=== PATIENT | female | born 1980 | race Hispanic/Latino ===

== ENCOUNTER 2016-12-07 09:01 | Inpatient (IN) | payer BC ==
[2016-12-07] MEDS ORDERED: Sodium Chloride 0.9% 1,000 ML IV STA (09:23)
--- NOTE | 2016-12-07 09:26 | ED PDOC ---
HPI: Abdomen Time Seen by Provider: 12/07/16 09:18 Chief Complaint (Nursing): Abdominal Pain History Per: Patient Onset/Duration Of Symptoms: Days (2) Current Symptoms Are (Timing): Still Present Severity: Moderate Pain Scale Rating Of: 5 Location Of Pain/Discomfort: LLQ Quality Of Discomfort: Unable To Describe Associated Symptoms: denies: Nausea, Vomiting, Diarrhea, Urinary Symptoms Exacerbating Factors: None Alleviating Factors: None Additional Complaint(s): LLQ abd pain x 2 days. Denies NVD. No urinary sxs. No fever. H/o endometriosis and ovarian cyst. Abnormal Vaginal Bleeding: Yes Past Medical History Vital Signs: Last Vital Signs Temp 98.8 F 12/07/16 09:04 Pulse 100 H 12/07/16 09:04 Resp 19 12/07/16 09:04 BP 118/70 12/07/16 09:04 Pulse Ox 100 12/07/16 09:27 - Medical History Other PMH: Endometriosis - Surgical History Other surgeries: Appendectomy, right oophorectomy, Surgery for endometriosis - Family History Family History: States: Unknown Family Hx - Allergies Allergies/Adverse Reactions: Allergies Allergy/AdvReac Type Severity Reaction Status Date / Time No Known Allergies Allergy Verified 12/07/16 09:06 Review of Systems ROS Statement: Except As Marked, All Systems Reviewed And Found Negative Gastrointestinal: Positive for: Abdominal Pain Physical Exam - Reviewed Nursing Documentation Reviewed: Yes Vital Signs Reviewed: Yes - Physical Exam Appears: Positive for: Non-toxic, Uncomfortable Head Exam: Positive for: ATRAUMATIC, NORMAL INSPECTION, NORMOCEPHALIC Skin: Positive for: Normal Color, Warm, DRY Eye Exam: Positive for: Normal appearance Neck: Positive for: Normal, Painless ROM Cardiovascular/Chest: Positive for: Regular Rate, Rhythm Respiratory: Positive for: CNT, Normal Breath Sounds Gastrointestinal/Abdominal: Positive for: Bowel Sounds, Soft, Tenderness (LLQ), Mass (LLQ), Guarding Back: Positive for: Normal Inspection Extremity: Positive for: Normal ROM Neurologic/Psych: Positive for: Alert, Oriented - ECG O2 Sat by Pulse Oximetry: 100 Disposition - Clinical Impression Clinical Impression: Abdominal pain, LLQ abdominal mass - Patient ED Disposition Is Patient to be Admitted: Yes - Disposition Disposition Time: 09:43 Condition: FAIR - Pt Status Changed To: Hospital Disposition Of: Inpatient - Admit Certification Admit to Inpatient:: After my assessment, the patient will require hospitalization for at least two midnights. This is because of the severity of symptoms shown, intensity of services needed, and/or the medical risk in this patient being treated as an outpatient. - POA Present On Arrival: None
[2016-12-07] MEDS ORDERED: Iohexol 240 (50 ml) ONE (09:35)
[2016-12-07] MEDS ORDERED: Iohexol 240 (50 ml) PO ONE ×2 (09:35→09:40)
[2016-12-07 09:44] LABS: BASO % 0.3 % (0.0-2.0); EOS # 0.2 K/uL (0.0-0.7); EOS % 1.5 % (0.0-4.0); HEMOGLOBIN 12.5 g/dL (12.0-16.0); LYMPH # 1.1 K/uL (1.0-4.3); LYMPH % 10.9 % (20.0-40.0); MEAN CELL VOLUME 88.6 fl (81.0-99.0); MEAN CORPUSCULAR HEMOGLOBIN 30.2 pg (27.0-31.0); MEAN CORPUSCULAR HGB CONC 34.1 g/dL (33.0-37.0); MEAN PLATELET VOLUME 8.5 fl (7.2-11.7); MONO # 0.5 K/uL (0.0-0.8); MONO % 4.7 % (0.0-10.0); NEUT # 8.3 K/uL (1.8-7.0); NEUT % 82.6 % (50.0-75.0); NRBC % 0.1 % (0.0-0.0); RBC 4.16 Mil/uL (3.80-5.20); RED CELL DISTRIBUTION WIDTH 13.2 % (11.5-14.5); WHITE BLOOD COUNT 10.1 K/uL (4.8-10.8)
[2016-12-07 10:16] LABS: ALB/GLOB RATIO 1.4 (1.0-2.1); ALBUMIN 4.7 g/dL (3.5-5.0); ALT/SGPT 21 U/L (9-52); AST/SGOT 46 U/L (14-36); BLOOD UREA NITROGEN 13 mg/dl (7-17); CALCIUM 9.1 mg/dL (8.4-10.2); GFR AFRICAN-AMERICAN > 60; GFR NON-AFRICAN AMERICAN > 60
--- NOTE | 2016-12-07 11:22 | CP.PCM.HP ---
History of Present Illness - History of Present Illness History of Present Illness: General Surgery - Dr. Hsu 36 yo F w/ hx of endometriosis, presenting with worsening abdominal and pelvic pains x 1 day. Pt states that for the past year she has had worsening intermittent abdominal pains but last night around midnight the pain became severe. She describes it as a sharp pain located in the suprapubic and b/l lower abdominal region, non-radiating, worsened when she urinates. Pt also admits to intermittent constipation. She denies any N/V, F/C, SOB/Cp, Diarrhea , Dysuria, Hematuria. FDLMP was 12/03 and she is irregular. PMH: Endometriosis PSH: Open Endometriosis resections x2 with Appendectomy, last surgery was 5 years ago No medications NKDA Present on Admission - Present on Admission Any Indicators Present on Admission: No Review of Systems - Review of Systems All systems: reviewed and no additional remarkable complaints except (as per HPI ) Past Patient History - Past Social History Smoking Status: Never Smoked - GASTROINTESTINAL Other/Comment: endometriosis - PSYCHIATRIC Hx Substance Use: No - SURGICAL HISTORY Hx Appendectomy: Yes Other/Comment: ovarian sx Meds Allergies/Adverse Reactions: Allergies Allergy/AdvReac Type Severity Reaction Status Date / Time No Known Allergies Allergy Verified 12/07/16 09:06 Physical Exam - Constitutional Appears: No Acute Distress - Head Exam Head Exam: ATRAUMATIC, NORMAL INSPECTION, NORMOCEPHALIC - Eye Exam Eye Exam: Normal appearance Pupil Exam: NORMAL ACCOMODATION - ENT Exam ENT Exam: Mucous Membranes Moist - Respiratory Exam Respiratory Exam: NORMAL BREATHING PATTERN. absent: Respiratory Distress - Cardiovascular Exam Cardiovascular Exam: REGULAR RHYTHM - GI/Abdominal Exam GI & Abdominal Exam: Mass (LLQ), Soft, Tenderness (lower abdomen b/l, L>R). absent: Distended, Guarding, Hernia, Rebound, Rigid - Neurological Exam Neurological exam: Alert, Oriented x3 - Psychiatric Exam Psychiatric exam: Normal Affect, Normal Mood - Skin Skin Exam: Dry, Intact Results - Vital Signs Recent Vital Signs: Last Vital Signs Temp 98.8 F 12/07/16 09:04 Pulse 100 H 12/07/16 09:04 Resp 19 12/07/16 09:04 BP 118/70 12/07/16 09:04 Pulse Ox 100 12/07/16 09:44 - Labs Result Diagrams: 12/07/16 09:39 12/07/16 09:39 Assessment & Plan - Assessment and Plan (Free Text) Assessment: 36 yo F w/ hx of endometriosis s/p resections, here with worsening lower abdominal pain -Admitted to surgical service under Dr. Hsu -CT scan with PO and IV contrast -Pain control PRN -NPO after midnight tonight -Plan for Surgery tomorrow morning DW DR. Hsu
[2016-12-07] MEDS ORDERED: Iohexol 300 100 ML IJ ONE (12:20)
[2016-12-07] MEDS ORDERED: Sodium Chloride 0.9% 50 ML IV ONE (12:20)
--- NOTE | 2016-12-07 13:03 | CT ---
PROCEDURE: CT Abdomen and Pelvis with contrast HISTORY: Pelvic pathology, endometriosis COMPARISON: None. TECHNIQUE: CT scan of the abdomen and pelvis was performed after intravenous and missed striation of contrast. Oral contrast was administered. Coronal and sagittal reformatted images were obtained. Contrast dose: 95 cc Omnipaque 300 Radiation dose: Total exam DLP = 655.84 mGy-cm. This CT exam was performed using one or more of the following dose reduction techniques: Automated exposure control, adjustment of the mA and/or kV according to patient size, and/or use of iterative reconstruction technique. FINDINGS: LOWER THORAX: The lung bases are clear. LIVER: The liver is normal in size and there is homogeneous enhancement without focal lesion. No intrahepatic biliary ductal dilatation. GALLBLADDER AND BILE DUCTS: There are no calcified gallstones. PANCREAS: The pancreas is normal in size and there is homogeneous enhancement without focal mass. No gross lesion or ductal dilatation. SPLEEN: The spleen is normal ADRENALS: Both adrenal glands are normal in size without discrete nodule KIDNEYS AND URETERS: Both kidneys are normal in size and there is homogeneous enhancement. There is a punctate nonobstructing stone in the lower pole of the left kidney. No hydronephrosis. No solid mass. VASCULATURE: Normal in appearance. No aortic aneurysm. BOWEL: The small bowel loops are normal in caliber. There is large amount of stool in the colon. APPENDIX: Normal appendix. PERITONEUM: No free fluid. No free air. LYMPH NODES: No enlarged lymph nodes. BLADDER: Normal in appearance. REPRODUCTIVE: There is a large septated cystic mass in the left lower abdomen and pelvis measuring approximately 17.7 x 0.3 cm. There is mass effect on the fundus and posterior wall of the uterus. The uterus is anteverted and normal in size. There are multiple surgical clips in the right hemipelvis. BONES: No acute fracture. Within normal limits for the patient's age. A small area of sclerosis in the right lateral acetabulum is statistically most compatible with a bone island. OTHER FINDINGS: None. IMPRESSION: 1. Large multi-septated cystic mass in the left lower abdomen and pelvis. The differential considerations include complicated septated cyst, cystadenoma and cystadenocarcinoma. Gynecologic consultation is warranted. 2. Punctate nonobstructing stone in the lower pole of the left kidney.
[2016-12-07] MEDS ORDERED: Peg-Electrolyte Oral Soln 4L (Golytely) PO ONE ×2 (13:19→14:45)
--- NOTE | 2016-12-07 16:56 | RAD ---
PROCEDURE: CHEST RADIOGRAPH, 1 VIEW HISTORY: pre-op COMPARISON: None available. FINDINGS: LUNGS: The lungs are well inflated and clear. PLEURA: No pneumothorax or pleural fluid seen. CARDIOVASCULAR: Normal. OSSEOUS STRUCTURES: No significant abnormalities. VISUALIZED UPPER ABDOMEN: Normal. OTHER FINDINGS: None. IMPRESSION: No active pulmonary disease.
[2016-12-07] MEDS ORDERED: Sodium Chloride 0.9% 1,000 ML IV SCH (23:00)
[2016-12-08 06:07] LABS: HEMOGLOBIN 11.6 g/dL (12.0-16.0); MEAN CELL VOLUME 89.6 fl (81.0-99.0); MEAN CORPUSCULAR HEMOGLOBIN 29.6 pg (27.0-31.0); RBC 3.93 Mil/uL (3.80-5.20); RED CELL DISTRIBUTION WIDTH 13.4 % (11.5-14.5); WHITE BLOOD COUNT 9.5 K/uL (4.8-10.8)
[2016-12-08 06:18] VITALS: BMI 23.3
[2016-12-08 06:23] LABS: ALB/GLOB RATIO 1.3 (1.0-2.1); ALBUMIN 3.5 g/dL (3.5-5.0); ALT/SGPT 25 U/L (9-52); AST/SGOT 22 U/L (14-36); BLOOD UREA NITROGEN 7 mg/dl (7-17); CALCIUM 8.7 mg/dL (8.4-10.2); GFR AFRICAN-AMERICAN > 60; GFR NON-AFRICAN AMERICAN > 60
[2016-12-08] MEDS ORDERED: Propofol 10 mg/ml Inj (20 ML) ONE (07:18)
[2016-12-08] MEDS ORDERED: ePHEDrine 50 mg/ml Inj ONE ×2 (07:19→09:24)
[2016-12-08] MEDS ORDERED: Midazolam 2 MG/2 ML VIAL ONE (07:19)
[2016-12-08] MEDS ORDERED: Rocuronium 10 mg/ml (5 ml) ONE ×4 (07:19→10:48)
[2016-12-08] MEDS ORDERED: Succinylcholine 200 mg/10 ml Inj IV ONE (07:20)
[2016-12-08] MEDS ORDERED: Lactated Ringer's 1,000 ML IV ONE ×3 (07:30→10:00)
[2016-12-08] MEDS ORDERED: Sevoflurane - Inhalation Anesthetic Liq (250 ml) ONE (08:25)
[2016-12-08] MEDS ORDERED: Albumin Human 5% (12.5 gm/250 ml) ONE (09:23)
[2016-12-08] MEDS ORDERED: Sodium Chloride 0.9% 1,000 ML IV ONE (09:30)
[2016-12-08] MEDS ORDERED: Neostigmine Methylsulfate 3mg/3ml Syringe IV ONE (10:49)
[2016-12-08] MEDS ORDERED: HYDROmorphone 0.5 mg/0.5 ml ISec ONE ×3 (11:28→11:38)
[2016-12-08] MEDS: HYDROmorphone 0.5 mg/0.5 ml ISec IVP PRN ×8 (11:37→12:41)
[2016-12-08] MEDS ORDERED: Lactated Ringer's 1,000 ML IV SCH (11:38)
[2016-12-08] MEDS ORDERED: HYDROmorphone 0.5 mg/0.5 ml ISec IVP PRN (11:40)
[2016-12-08] MEDS ORDERED: Naloxone 0.4 mg/ml Inj (Adult) IVP PRN (11:41)
--- NOTE | 2016-12-08 11:47 | PCM.SURG1 ---
Surgeon's Initial Post Op Note - Surgeon's Notes Surgeon: Dr. Hsu, Dr. Nevarez Table Worker Packager: Letty Delgado Type of Anesthesia: General Endo Anesthesia Administered By: Maria G Pre-Operative Diagnosis: Pelvic Mass, Endometriosis Operative Findings: see operative report Post-Operative Diagnosis: same Operation Performed: Exploratory Laparotomy. Excision of Retroperitoneal mass. b/L Ureterolysis. Left Oophrectomy. Excision Sigmoid colon wall. Excision of Bladder mass. Cystoraphy. Excision of Peritoneal Endometriosis. Excision of Uterine Adenomyosis Specimen/Specimens Removed: Endometrial implants. Portion of sigmoid colon wall. Pelvic mass Estimated Blood Loss: EBL {In ML}: 1,000 Blood Products Given: PRBC (2 units) Drains Used: No Drains Post-Op Condition: Fair Date of Surgery/Procedure: 12/08/16 Time of Surgery/Procedure: 11:49
[2016-12-08 12:15] LABS: ABG ALLEN TEST YES; ARTERIAL BLOOD GAS HCO3 22.8 mmol/L (21-28); ARTERIAL BLOOD GAS HEMOGLOBIN 12.6 g/dL (11.7-17.4); ARTERIAL BLOOD GAS O2 CAPACITY 17.2 mL/dL (16-24); ARTERIAL BLOOD GAS O2 CONTENT 16.8 ML/dL (15-23); ARTERIAL BLOOD GAS O2 SAT 97.5 % (95-98); ARTERIAL BLOOD GAS PCO2 43 mm/Hg (35-45); ARTERIAL BLOOD GAS PH 7.34 (7.35-7.45); ARTERIAL BLOOD GAS PO2 82 mm/Hg (80-100); ARTERIAL BLOOD GAS TCO2 24.5 mmol/L (22-28)
--- NOTE | 2016-12-08 15:09 | CP.PCM.CON ---
History of Present Illness - History of Present Illness History of Present Illness: 36yo F. PMHx of endometriosis, appendectomy. p/w abdominal pain secondary to large cystic mass in abdomen seen on CT abdomen (12/07). Underwent ex-lap with excision of retroperitoneal mass, bilateral ureterolysis, sigmoid colon resection, partial urinary bladder resection with cystorrhaphy, left oopherectomy, excision of peritoneal endometriosis, excision of uterine adenomyosis. EBL - 1000ml. Admitted to ICU for post-op monitoring. Review of Systems - Review of Systems All systems: reviewed and no additional remarkable complaints except - Gastrointestinal Gastrointestinal: Abdominal Pain (post-operative pain) Past Patient History - Past Medical History & Family History Past Medical History?: Yes - Past Social History Smoking Status: Never Smoked - CARDIAC Hx Cardiac Disorders: No - PULMONARY Hx Respiratory Disorders: No - NEUROLOGICAL Hx Neurological Disorder: No - HEENT Hx HEENT Problems: No - RENAL Hx Chronic Kidney Disease: No - ENDOCRINE/METABOLIC Hx Endocrine Disorders: No - HEMATOLOGICAL/ONCOLOGICAL Hx Blood Disorders: No - INTEGUMENTARY Hx Dermatological Problems: No - MUSCULOSKELETAL/RHEUMATOLOGICAL Hx Musculoskeletal Disorders: No Hx Falls: No - GASTROINTESTINAL Other/Comment: endometriosis - GENITOURINARY/GYNECOLOGICAL Hx Genitourinary Disorders: No - PSYCHIATRIC Hx Substance Use: No - SURGICAL HISTORY Hx Appendectomy: Yes Other/Comment: ovarian sx - ANESTHESIA Hx Anesthesia: Yes Meds Allergies/Adverse Reactions: Allergies Allergy/AdvReac Type Severity Reaction Status Date / Time corn Allergy Severe ANAPHYLAXIS Verified 12/07/16 14:04 rice Allergy Severe ANAPHYLAXIS Verified 12/07/16 14:17 wheat Allergy Severe ANAPHYLAXIS Verified 12/07/16 14:15 - Medications Medications: Current Medications Enoxaparin Sodium (Lovenox) 40 mg SC DAILY CARLA PRN Reason: Protocol Hydromorphone HCl (Dilaudid 0.2 Mg/Ml Manager Media Relations) 0 mg IV PRN PRN; Protocol PRN Reason: Pain, moderate (4-7) Last Admin: 12/08/16 12:00 Dose: 0 mg Sodium Chloride (Sodium Chloride 0.9%) 1,000 mls @ 100 mls/hr IV .Q10H CARLA Last Admin: 12/08/16 13:15 Dose: 0 mls Lactated Ringer's (Lactated Ringer's) 1,000 mls @ 125 mls/hr IV .Q8H CARLA Cefoxitin Sodium (Mefoxin Iv 1 Gm Duplex) 1 gm in 50 mls @ 50 mls/hr IVPB Q6 CARLA Morphine Sulfate (Morphine) 4 mg IVP Q4 PRN PRN Reason: Pain, moderate (4-7) Last Admin: 12/08/16 00:37 Dose: 4 mg Naloxone HCl (Narcan) 0.1 mg IVP Q2M PRN PRN Reason: Opiate reversal Ondansetron HCl (Zofran Inj) 4 mg IVP Q4H PRN PRN Reason: Nausea/Vomiting Physical Exam - Head Exam Head Exam: ATRAUMATIC, NORMAL INSPECTION, NORMOCEPHALIC - Eye Exam Eye Exam: EOMI, Normal appearance, PERRL - ENT Exam ENT Exam: Mucous Membranes Dry - Respiratory Exam Respiratory Exam: Clear to Auscultation Bilateral, NORMAL BREATHING PATTERN - Cardiovascular Exam Cardiovascular Exam: Tachycardia, REGULAR RHYTHM - GI/Abdominal Exam GI & Abdominal Exam: Hypoactive Bowel Sounds, Tenderness Additional comments: surgical wound dressed - Neurological Exam Neurological exam: Alert, CN II-XII Intact, Oriented x3 - Psychiatric Exam Psychiatric exam: Anxious Results - Vital Signs Recent Vital Signs: Last Vital Signs Temp 98.7 F 12/08/16 13:39 Pulse 79 12/08/16 13:39 Resp 38 H 12/08/16 13:39 BP 113/58 L 12/08/16 13:39 Pulse Ox 99 12/08/16 13:39 - Labs Result Diagrams: 12/08/16 05:50 12/08/16 05:50 Labs: Laboratory Results - last 24 hr 12/08/16 12/08/16 12/08/16 05:50 05:50 05:50 WBC 9.5 RBC 3.93 Hgb 11.6 L Hct 35.2 MCV 89.6 MCH 29.6 MCHC 33.0 RDW 13.4 Plt Count 257 pCO2 pO2 HCO3 ABG pH ABG Total CO2 ABG O2 Saturation ABG O2 Content ABG Base Excess ABG Hemoglobin ABG Carboxyhemoglobin POC ABG HHb (Measured) ABG Methemoglobin ABG O2 Capacity Rosendo Test A-a O2 Difference Hgb O2 Saturation Liter Flow Vent Mode FiO2 Sodium 141 Potassium 3.6 Chloride 109 H Carbon Dioxide 25 Anion Gap 11 BUN 7 Creatinine 0.7 Est GFR ( Amer) > 60 Est GFR (Non-Af Amer) > 60 Random Glucose 91 Calcium 8.7 Total Bilirubin 0.6 AST 22 ALT 25 Alkaline Phosphatase 55 Total Protein 6.3 Albumin 3.5 D Globulin 2.8 Albumin/Globulin Ratio 1.3 Blood Type A POSITIVE Blood Type Confirm Antibody Screen Negative Crossmatch See Detail BBK History Checked No verified bt 12/08/16 12/08/16 07:09 11:43 WBC RBC Hgb Hct MCV MCH MCHC RDW Plt Count pCO2 43 pO2 82 HCO3 22.8 ABG pH 7.34 L ABG Total CO2 24.5 ABG O2 Saturation 97.5 ABG O2 Content 16.8 ABG Base Excess -2.6 L ABG Hemoglobin 12.6 ABG Carboxyhemoglobin 1.7 H POC ABG HHb (Measured) 2.4 ABG Methemoglobin 1.6 ABG O2 Capacity 17.2 Rosendo Test Yes A-a O2 Difference 64.0 Hgb O2 Saturation 94.3 L Liter Flow 2 Vent Mode Nc FiO2 28.0 Sodium Potassium Chloride Carbon Dioxide Anion Gap BUN Creatinine Est GFR ( Amer) Est GFR (Non-Af Amer) Random Glucose Calcium Total Bilirubin AST ALT Alkaline Phosphatase Total Protein Albumin Globulin Albumin/Globulin Ratio Blood Type Blood Type Confirm A POSITIVE Antibody Screen Crossmatch BBK History Checked Assessment & Plan (1) Abdominal mass Assessment and Plan: 36yo F. PMHx of endometriosis, appendectomy. p/w abdominal pain secondary to large cystic mass in abdomen seen on CT abdomen (12/07). Underwent ex-lap with excision of retroperitoneal mass, bilateral ureterolysis, sigmoid colon resection, partial urinary bladder resection with cystorrhaphy, left oopherectomy, excision of peritoneal endometriosis, excision of uterine adenomyosis. Neuro: Alert and oriented 3, Dilaudid CERTIFIED MEDICAL TECHNICIAN for pain Pulm: No acute issues, breathing spontaneously on 2 L nasal cannula. CV: Hemodynamically stable Hem: Post-op blood loss anemia, will monitor for need of transfusion. Renal: No acute issues, urine output within normal limits, will monitor. LR@125 Endo: No acute issues GI: Nothing by mouth ID: Empiric coverage with cefoxitin DVT proph - Lovenox GI proph - not currently indicated toney for strict I/O's during acute illness Code status - full code Critical Care Time spent 35 minutes Multi-disciplinary rounds were performed with house staff, nursing, speech therapy, respiratory therapy, pharmacy and nutrition with integrated input from the primary team/attending and other consulting services. The documented time is cumulative and includes review of patient data/exams/labs/chart review and examination of the patient on rounds and throughout the day; time is exclusive of any procedures or teaching time. Status: Acute
[2016-12-08 15:13] LABS: ALB/GLOB RATIO 1.5 (1.0-2.1); ALBUMIN 3.1 g/dL (3.5-5.0); ALT/SGPT 25 U/L (9-52); AST/SGOT 21 U/L (14-36); BLOOD UREA NITROGEN 8 mg/dl (7-17); CALCIUM 8.1 mg/dL (8.4-10.2); GFR AFRICAN-AMERICAN > 60; GFR NON-AFRICAN AMERICAN > 60
[2016-12-08] MEDS ORDERED: Benzocaine/Menthol (Cepacol) Lozenge PO PRN (15:53)
[2016-12-08] MEDS ORDERED: Phenol 1.4% Throat Spray MT PRN (15:53)
[2016-12-08] MEDS ORDERED: cefOXitin IV 1 gm in Dextrose 1 GM/50 ML BAG IVPB SCH (16:00)
[2016-12-08 16:20] LABS: BASO # 0.1 K/uL (0.0-0.2); BASO % 0.3 % (0.0-2.0); HEMOGLOBIN 12.3 g/dL (12.0-16.0); LYMPH # 0.4 K/uL (1.0-4.3); LYMPH % 1.8 % (20.0-40.0); MEAN CELL VOLUME 89.1 fl (81.0-99.0); MEAN CORPUSCULAR HEMOGLOBIN 29.3 pg (27.0-31.0); MEAN CORPUSCULAR HGB CONC 32.9 g/dL (33.0-37.0); MEAN PLATELET VOLUME 8.7 fl (7.2-11.7); MONO # 0.9 K/uL (0.0-0.8); MONO % 3.8 % (0.0-10.0); NEUT # 23.1 K/uL (1.8-7.0); NEUT % 94.1 % (50.0-75.0); PLATELET COUNT 244 K/uL (130-400); RED CELL DISTRIBUTION WIDTH 13.7 % (11.5-14.5)
[2016-12-08 16:37] LABS: WHITE BLOOD COUNT 24.5 K/uL (4.8-10.8)
--- NOTE | 2016-12-08 17:22 | CARD ---
APPROVED REPORT EKG Measurement Heart [id number] <Conclusion> Normal sinus rhythm Low voltage QRS Borderline ECG
[2016-12-08 17:55] LABS: LYMPHOCYTE 3 % (20-50); MONOCYTE 5 % (0-10); NEUTROPHIL 92 % (42-75); TOTAL CELLS COUNTED 100
[2016-12-08 17:56] LABS: PLATELET ESTIMATE NORMAL (NORMAL)
[2016-12-08] MEDS ORDERED: Artificial Tears Opht Soln OU PRN (19:34)
[2016-12-08] MEDS: cefOXitin Sodium 1 GM in Dextrose 5% In Water 50 ML IV SCH (21:58)
[2016-12-09] MEDS: cefOXitin Sodium 1 GM in Dextrose 5% In Water 50 ML IV SCH ×3 (05:13→21:55)
[2016-12-09 07:32] LABS: BASO % 0.3 % (0.0-2.0); EOS % 0.3 % (0.0-4.0); HEMOGLOBIN 10.9 g/dL (12.0-16.0); LYMPH # 1.3 K/uL (1.0-4.3); MEAN CELL VOLUME 89.1 fl (81.0-99.0); MEAN CORPUSCULAR HGB CONC 33.7 g/dL (33.0-37.0); MEAN PLATELET VOLUME 8.7 fl (7.2-11.7); MONO # 0.8 K/uL (0.0-0.8); MONO % 6.7 % (0.0-10.0); NEUT # 10.5 K/uL (1.8-7.0); NEUT % 82.7 % (50.0-75.0); RBC 3.63 Mil/uL (3.80-5.20); RED CELL DISTRIBUTION WIDTH 13.7 % (11.5-14.5); WHITE BLOOD COUNT 12.7 K/uL (4.8-10.8)
[2016-12-09 07:38] LABS: ALB/GLOB RATIO 1.3 (1.0-2.1); ALT/SGPT 31 U/L (9-52); AST/SGOT 30 U/L (14-36); BLOOD UREA NITROGEN 11 mg/dl (7-17); GFR AFRICAN-AMERICAN > 60; GFR NON-AFRICAN AMERICAN > 60
[2016-12-09] MEDS ORDERED: Lactated Ringer's 1,000 ML IV SCH (08:15)
--- NOTE | 2016-12-09 08:42 | CP.PCM.PN ---
Subjective - Date & Time of Evaluation Date of Evaluation: 12/09/16 Time of Evaluation: 08:40 - Subjective Subjective: General Surgery - Dr. Hsu Pt S&E. Overnight pt. BP was in the 80s systolic and hospitalist was paged, at which point they decided to stop the PHP MAGENTO DEVELOPER. This morning pt in severe pain not controlled with Morphine prn. All vitals stable and WNL, BP 110/70 at time of exam. Pt complains of lower abdominal pain near the incision which is appropriate. She also has throat discomfort from the NGT. She denies any F/C, SOB/Cp, N/V. Weiss catheter with 500cc clear yellow urine overnight. NGT with 100cc gastric fluid. Objective - Vital Signs/Intake and Output Vital Signs (last 24 hours): Temp Pulse Resp BP Pulse Ox 99.6 F 68 17 94/55 L 100 12/09/16 04:00 12/09/16 06:00 12/09/16 06:00 12/09/16 06:00 12/09/16 06:00 Intake and Output: 12/09/16 12/09/16 06:59 18:59 Intake Total 1475 Output Total 250 Balance 1225 - Medications Medications: Current Medications Artificial Tears (Artificial Tears) 2 drop OU Q4 PRN PRN Reason: Dry eyes Last Admin: 12/08/16 19:49 Dose: 2 drop Benzocaine/Menthol (Cepacol Sore Throat) 1 chadwick PO Q2 PRN PRN Reason: Sore Throat Last Admin: 12/08/16 19:37 Dose: 1 chadwick Enoxaparin Sodium (Lovenox) 40 mg SC DAILY CARLA PRN Reason: Protocol Hydromorphone HCl (Dilaudid 0.2 Mg/Ml Core Dipper) 0 mg IV PRN PRN; Protocol PRN Reason: Pain, moderate (4-7) Last Admin: 12/08/16 22:37 Dose: 6 mg Hydromorphone HCl (Dilaudid 0.2 Mg/Ml Core Dipper) 6 mg IV PRN PRN; Protocol PRN Reason: Pain, moderate (4-7) Sodium Bicarbonate 75 meq/ (Sodium Chloride) 1,075 mls @ 125 mls/hr IV .Q8H36M [facility] Stop: 12/09/16 18:46 Last Admin: 12/09/16 05:13 Dose: 125 mls/hr Cefoxitin Sodium 1 gm/ (Dextrose) 50 mls @ 50 mls/hr IV Q6 [facility] Last Admin: 12/09/16 05:13 Dose: 50 mls/hr Lactated Ringer's (Lactated Ringer's) 1,000 mls @ 999 mls/hr IV .Q1H1M [facility] Ketorolac Tromethamine (Toradol) 30 mg IVP Q6 [facility] Stop: 12/11/16 16:01 Last Admin: 12/09/16 03:42 Dose: 30 mg Morphine Sulfate (Morphine) 4 mg IVP Q4 PRN PRN Reason: Pain, severe (8-10) Last Admin: 12/09/16 07:48 Dose: 4 mg Naloxone HCl (Narcan) 0.1 mg IVP Q2M PRN PRN Reason: Opiate reversal Ondansetron HCl (Zofran Inj) 4 mg IVP Q4H PRN PRN Reason: Nausea/Vomiting Phenol/Menthol (Phenaseptic 1.4% Throat Meyers Chuck) 1 spry MT Q2 PRN PRN Reason: Sore Throat Last Admin: 12/08/16 17:10 Dose: 1 spr - Labs Labs: 12/09/16 07:45 12/09/16 04:00 - Constitutional Appears: In Acute Distress - Head Exam Head Exam: ATRAUMATIC, NORMAL INSPECTION, NORMOCEPHALIC - Eye Exam Eye Exam: Normal appearance - ENT Exam ENT Exam: Mucous Membranes Moist - Respiratory Exam Respiratory Exam: NORMAL BREATHING PATTERN. absent: Respiratory Distress - Cardiovascular Exam Cardiovascular Exam: REGULAR RHYTHM - GI/Abdominal Exam GI & Abdominal Exam: Soft, Tenderness. absent: Distended, Firm, Guarding, Rebound Additional comments: midline incision C/D/I - Neurological Exam Neurological Exam: Alert, Oriented x3 - Psychiatric Exam Psychiatric exam: Normal Affect, Normal Mood - Skin Skin Exam: Dry, Intact Assessment and Plan - Assessment and Plan (Free Text) Assessment: 40 yo F w/ endometriosis s/p Laparotomy with resection of pelvic mass, POD #1 -D/C NGT -IVF Bolus x1 then continue LR @125/hr -NPO with sips of water and ice chips -Weiss to remain in place for several days, Monitor I/O -Pain control with PHP MAGENTO DEVELOPER and Toradol atc, Morphine for breakthrough pain -OOB to chair and encourage incentive spirometer -DVT px -Surgical team is to be paged for any and all issues regarding the patient. 24Hr weekend pager: [phone] Hsu and Dr. Geri Meneses PGY2
--- NOTE | 2016-12-09 08:55 | CP.CCUPN ---
CCU Subjective - Physician Review Events Since Last Encounter (Free Text): 12/10/16 The Patient was seen and examined at the bedside, Medical records reviewed, all clinical/lab/hemodynamic/radiographic data were reviewed and management issues were discussed and formulated, Events reviewed 36 Y/O F with Pelvic Mass, Endometriosis, POD #1 S/P Exploratory Laparotomy, Excision of Retroperitoneal mass, b/L Ureterolysis, Left Oophrectomy, Excision Sigmoid colon wall. Also Excision of Bladder mass, Cystoraphy, Excision of Peritoneal Endometriosis and Excision of Uterine Adenomyosis Procedure done under General Anesthesia and was uneventful, Patient was successfully extubated, admitted to ICU hemodynamically stable, Overnight boarderline hypotensive, BP better today Abd pain better controlled today on STREETCAR REPAIRER HELPER and Toradol, denies any chest pain or SOB No BM or flatus NG Tube removed Patient OOB to the chair, using I Spirometry about 700ml CCU Objective - Vital Signs / Intake & Output Vital Signs (Last 4 hours): Vital Signs Pulse Resp BP Pulse Ox 12/09/16 06:00 68 17 94/55 L 100 Intake and Output (Last 8hrs): Intake & Output 12/08/16 12/09/16 12/09/16 22:59 06:59 14:59 Intake Total 850 975 Output Total 300 250 Balance 550 725 Intake: IV 800 875 Intake, Piggyback 50 100 Output: Urine 300 250 Urethral (Weiss) 300 250 - Physical Exam Physical Exam Limitations: Positive for: Clinical Condition Head: Positive for: Atraumatic, Normocephalic Pupils: Positive for: PERRL. Negative for: Sluggish, Non-Reactive Extroacular Muscles: Positive for: EOMI. Negative for: Gaze Palsy, Entrapment Conjunctiva: Positive for: Normal. Negative for: Injected Ears: Positive for: Normal Mouth: Positive for: Moist Mucous Membranes Pharnyx: Positive for: Normal Nose (Internal): Positive for: Normal Inspection Neck: Positive for: Normal Range of Motion, Trachea Midline. Negative for: Meningeal Signs, MIDLINE TENDERNESS, Paraspinal Tenderness, JVD, Lymphadenopathy , Bruit, Other Respiratory/Chest: Positive for: Clear to Auscultation, Good Air Exchange. Negative for: Respiratory Distress, Accessory Muscle Use, Wheezes, Rales, Rhonchi Cardiovascular: Positive for: Regular Rate and Rhythm, Normal S1, S2, Peripheal Pulses Present. Negative for: Murmurs, Irregular Rhythm, Tachycardic, Bradycardic Abdomen: Positive for: Tenderness, Distention, Other (Midline abdominal surgical incision covered with dressing, CDI W/O drainage/erythema). Negative for: Normal Bowel Sounds, Peritoneal Signs Upper Extremity: Positive for: Normal Inspection, NORMAL PULSES, Capillary Refill < 2s. Negative for: Cyanosis, Edema Lower Extremity: Positive for: Edema, NORMAL PULSES, Capillary Refill < 2 s Neurological: Positive for: GCS=15, CN II-XII Intact, Speech Normal, Motor Func Grossly Intact, Normal Sensory Function Skin: Positive for: Warm, Dry Psychiatric: Positive for: Alert, Oriented x 3, Normal Insight, Normal Concentration - Medications Active Medications: Active Medications Generic Name Dose Route Start Last Admin Trade Name Freq PRN Reason Stop Dose Admin Artificial Tears 2 drop 12/08/16 19:34 12/08/16 19:49 Artificial Tears OU 2 drop Q4 PRN Administration Dry eyes Benzocaine/Menthol 1 chadwick 12/08/16 15:53 12/08/16 19:37 Cepacol Sore Throat PO 1 chadwick Q2 PRN Administration Sore Throat Enoxaparin Sodium 40 mg 12/09/16 09:00 Lovenox SC DAILY [facility] Protocol Hydromorphone HCl 0 mg 12/08/16 11:39 12/08/16 22:37 Dilaudid 0.2 Mg/Ml Milling Machine Operator IV 6 mg PRN PRN Administration Pain, moderate (4-7) Protocol Hydromorphone HCl 6 mg 12/09/16 08:08 Dilaudid 0.2 Mg/Ml Milling Machine Operator IV PRN PRN Pain, moderate (4-7) Protocol Sodium Bicarbonate 75 meq/ 1,075 mls @ 125 mls/hr 12/08/16 19:00 12/09/16 05: 13 Sodium Chloride IV 12/09/16 18:46 125 mls/hr .Q8H36M CARLA Administration Cefoxitin Sodium 1 gm/ 50 mls @ 50 mls/hr 12/08/16 22:00 12/09/16 05:13 Dextrose IV 50 mls/hr Q6 CARLA Administration Lactated Ringer's 1,000 mls @ 999 mls/hr 12/09/16 08:15 Lactated Ringer's IV .Q1H1M CARLA Ketorolac Tromethamine 30 mg 12/08/16 16:00 12/09/16 03:42 Toradol IVP 12/11/16 16:01 30 mg Q6 CARLA Administration Morphine Sulfate 4 mg 12/08/16 15:52 12/09/16 07:48 Morphine IVP 4 mg Q4 PRN Administration Pain, severe (8-10) Naloxone HCl 0.1 mg 12/08/16 11:41 Narcan IVP Q2M PRN Opiate reversal Ondansetron HCl 4 mg 12/08/16 11:41 Zofran Inj IVP Q4H PRN Nausea/Vomiting Phenol/Menthol 1 spry 12/08/16 15:53 12/08/16 17:10 Phenaseptic 1.4% Throat [place] 1 spr Q2 PRN Administration Sore Throat - Patient Studies Lab Studies: Lab Studies 12/09/16 12/09/16 12/08/16 Range/Units 07:45 04:00 14:30 WBC 12.7 H (4.8-10.8) K/uL RBC 3.63 L (3.80-5.20) Mil/uL Hgb 10.9 L (12.0-16.0) g/dL Hct 32.3 L (34.0-47.0) % MCV 89.1 (81.0-99.0) fl MCH 30.0 (27.0-31.0) pg MCHC 33.7 (33.0-37.0) g/dL RDW 13.7 (11.5-14.5) % Plt Count 206 (130-400) K/uL MPV 8.7 (7.2-11.7) fl Neut % (Auto) 82.7 H (50.0-75.0) % Lymph % (Auto) 10.0 L (20.0-40.0) % [place] % (Auto) 6.7 (0.0-10.0) % Eos % (Auto) 0.3 (0.0-4.0) % Baso % (Auto) 0.3 (0.0-2.0) % Neut # 10.5 H (1.8-7.0) K/uL Lymph # 1.3 (1.0-4.3) K/uL [place] # 0.8 (0.0-0.8) K/uL Eos # 0.0 (0.0-0.7) K/uL Baso # 0.0 (0.0-0.2) K/uL Neutrophils % (Manual) (42-75) % Lymphocytes % (Manual) (20-50) % Monocytes % (Manual) (0-10) % Platelet Estimate (NORMAL) pCO2 (35-45) mm/Hg pO2 (80-100) mm/Hg HCO3 (21-28) mmol/L ABG pH (7.35-7.45) ABG Total CO2 (22-28) mmol/L ABG O2 Saturation (95-98) % ABG O2 Content (15-23) ML/dL ABG Base Excess (-2.0-3.0) mmol/L ABG Hemoglobin (11.7-17.4) g/dL ABG Carboxyhemoglobin (0.5-1.5) % POC ABG HHb (Measured) (0.0-5.0) % ABG Methemoglobin (0.0-3.0) % ABG O2 Capacity (16-24) mL/dL Rosendo Test A-a O2 Difference mm/Hg Hgb O2 Saturation (95.0-98.0) % Liter Flow Vent Mode FiO2 % Sodium 139 139 (132-148) mmol/l Potassium 3.6 3.7 (3.6-5.0) MMOL/L Chloride 106 108 H (98-107) mmol/L Carbon Dioxide 25 23 (22-30) mmol/L Anion Gap 11 12 (10-20) BUN 11 8 (7-17) mg/dl Creatinine 0.7 0.7 (0.7-1.2) mg/dL Est GFR ( Amer) > 60 > 60 Est GFR (Non-Af Amer) > 60 > 60 Random Glucose 88 133 H (65-105) mg/dL Calcium 8.0 L 8.1 L (8.4-10.2) mg/dL Total Bilirubin 0.6 1.0 (0.2-1.3) mg/dl AST 30 21 (14-36) U/L ALT 31 25 (9-52) U/L Alkaline Phosphatase 44 46 (38-126) U/L Total Protein 5.3 L 5.2 L (6.3-8.2) G/DL Albumin 3.0 L 3.1 L (3.5-5.0) g/dL Globulin 2.3 2.1 L (2.2-3.9) gm/dL Albumin/Globulin Ratio 1.3 1.5 (1.0-2.1) Blood Type Blood Type Confirm Antibody Screen Crossmatch BBK History Checked 12/08/16 12/08/16 12/08/16 Range/Units 14:30 11:43 07:09 WBC 24.5 H D (4.8-10.8) K/uL RBC 4.20 (3.80-5.20) Mil/uL Hgb 12.3 (12.0-16.0) g/dL Hct 37.4 (34.0-47.0) % MCV 89.1 (81.0-99.0) fl MCH 29.3 (27.0-31.0) pg MCHC 32.9 L (33.0-37.0) g/dL RDW 13.7 (11.5-14.5) % Plt Count 244 (130-400) K/uL MPV 8.7 (7.2-11.7) fl Neut % (Auto) 94.1 H (50.0-75.0) % Lymph % (Auto) 1.8 L (20.0-40.0) % [place] % (Auto) 3.8 (0.0-10.0) % Eos % (Auto) 0.0 (0.0-4.0) % Baso % (Auto) 0.3 (0.0-2.0) % Neut # 23.1 H (1.8-7.0) K/uL Lymph # 0.4 L (1.0-4.3) K/uL [place] # 0.9 H (0.0-0.8) K/uL Eos # 0.0 (0.0-0.7) K/uL Baso # 0.1 (0.0-0.2) K/uL Neutrophils % (Manual) 92 H (42-75) % Lymphocytes % (Manual) 3 L (20-50) % Monocytes % (Manual) 5 (0-10) % Platelet Estimate Normal (NORMAL) pCO2 43 (35-45) mm/Hg pO2 82 (80-100) mm/Hg HCO3 22.8 (21-28) mmol/L ABG pH 7.34 L (7.35-7.45) ABG Total CO2 24.5 (22-28) mmol/L ABG O2 Saturation 97.5 (95-98) % ABG O2 Content 16.8 (15-23) ML/dL ABG Base Excess -2.6 L (-2.0-3.0) mmol/L ABG Hemoglobin 12.6 (11.7-17.4) g/dL ABG Carboxyhemoglobin 1.7 H (0.5-1.5) % POC ABG HHb (Measured) 2.4 (0.0-5.0) % ABG Methemoglobin 1.6 (0.0-3.0) % ABG O2 Capacity 17.2 (16-24) mL/dL Rosendo Test Yes A-a O2 Difference 64.0 mm/Hg Hgb O2 Saturation 94.3 L (95.0-98.0) % Liter Flow 2 Vent Mode Nc FiO2 28.0 % Sodium (132-148) mmol/l Potassium (3.6-5.0) MMOL/L Chloride (98-107) mmol/L Carbon Dioxide (22-30) mmol/L Anion Gap (10-20) BUN (7-17) mg/dl Creatinine (0.7-1.2) mg/dL Est GFR ( Amer) Est GFR (Non-Af Amer) Random Glucose (65-105) mg/dL Calcium (8.4-10.2) mg/dL Total Bilirubin (0.2-1.3) mg/dl AST (14-36) U/L ALT (9-52) U/L Alkaline Phosphatase (38-126) U/L Total Protein (6.3-8.2) G/DL Albumin (3.5-5.0) g/dL Globulin (2.2-3.9) gm/dL Albumin/Globulin Ratio (1.0-2.1) Blood Type Blood Type Confirm A POSITIVE Antibody Screen Crossmatch BBK History Checked 12/08/16 Range/Units 05:50 WBC (4.8-10.8) K/uL RBC (3.80-5.20) Mil/uL Hgb (12.0-16.0) g/dL Hct (34.0-47.0) % MCV (81.0-99.0) fl MCH (27.0-31.0) pg MCHC (33.0-37.0) g/dL RDW (11.5-14.5) % Plt Count (130-400) K/uL MPV (7.2-11.7) fl Neut % (Auto) (50.0-75.0) % Lymph % (Auto) (20.0-40.0) % [place] % (Auto) (0.0-10.0) % Eos % (Auto) (0.0-4.0) % Baso % (Auto) (0.0-2.0) % Neut # (1.8-7.0) K/uL Lymph # (1.0-4.3) K/uL [place] # (0.0-0.8) K/uL Eos # (0.0-0.7) K/uL Baso # (0.0-0.2) K/uL Neutrophils % (Manual) (42-75) % Lymphocytes % (Manual) (20-50) % Monocytes % (Manual) (0-10) % Platelet Estimate (NORMAL) pCO2 (35-45) mm/Hg pO2 (80-100) mm/Hg HCO3 (21-28) mmol/L ABG pH (7.35-7.45) ABG Total CO2 (22-28) mmol/L ABG O2 Saturation (95-98) % ABG O2 Content (15-23) ML/dL ABG Base Excess (-2.0-3.0) mmol/L ABG Hemoglobin (11.7-17.4) g/dL ABG Carboxyhemoglobin (0.5-1.5) % POC ABG HHb (Measured) (0.0-5.0) % ABG Methemoglobin (0.0-3.0) % ABG O2 Capacity (16-24) mL/dL Rosendo Test A-a O2 Difference mm/Hg Hgb O2 Saturation (95.0-98.0) % Liter Flow Vent Mode FiO2 % Sodium (132-148) mmol/l Potassium (3.6-5.0) MMOL/L Chloride (98-107) mmol/L Carbon Dioxide (22-30) mmol/L Anion Gap (10-20) BUN (7-17) mg/dl Creatinine (0.7-1.2) mg/dL Est GFR ( Amer) Est GFR (Non-Af Amer) Random Glucose (65-105) mg/dL Calcium (8.4-10.2) mg/dL Total Bilirubin (0.2-1.3) mg/dl AST (14-36) U/L ALT (9-52) U/L Alkaline Phosphatase (38-126) U/L Total Protein (6.3-8.2) G/DL Albumin (3.5-5.0) g/dL Globulin (2.2-3.9) gm/dL Albumin/Globulin Ratio (1.0-2.1) Blood Type A POSITIVE Blood Type Confirm Antibody Screen Negative Crossmatch See Detail BBK History Checked No verified bt Laboratory Results - last 24 hr 12/08/16 12/08/16 12/08/16 05:50 07:09 11:43 WBC RBC Hgb Hct MCV MCH MCHC RDW Plt Count MPV Neut % (Auto) Lymph % (Auto) [place] % (Auto) Eos % (Auto) Baso % (Auto) Neut # Lymph # [place] # Eos # Baso # Neutrophils % (Manual) Lymphocytes % (Manual) Monocytes % (Manual) Platelet Estimate pCO2 43 pO2 82 HCO3 22.8 ABG pH 7.34 L ABG Total CO2 24.5 ABG O2 Saturation 97.5 ABG O2 Content 16.8 ABG Base Excess -2.6 L ABG Hemoglobin 12.6 ABG Carboxyhemoglobin 1.7 H POC ABG HHb (Measured) 2.4 ABG Methemoglobin 1.6 ABG O2 Capacity 17.2 [place] Test Yes A-a O2 Difference 64.0 Hgb O2 Saturation 94.3 L Liter Flow 2 Vent Mode Nc FiO2 28.0 Sodium Potassium Chloride Carbon Dioxide Anion Gap BUN Creatinine Est GFR ( Amer) Est GFR (Non-Af Amer) Random Glucose Calcium Total Bilirubin AST ALT Alkaline Phosphatase Total Protein Albumin Globulin Albumin/Globulin Ratio Blood Type A POSITIVE Blood Type Confirm A POSITIVE Antibody Screen Negative Crossmatch See Detail BBK History Checked No verified bt 12/08/16 12/08/16 12/09/16 14:30 14:30 04:00 WBC 24.5 H D RBC 4.20 Hgb 12.3 Hct 37.4 MCV 89.1 MCH 29.3 MCHC 32.9 L RDW 13.7 Plt Count 244 MPV 8.7 Neut % (Auto) 94.1 H Lymph % (Auto) 1.8 L [place] % (Auto) 3.8 Eos % (Auto) 0.0 Baso % (Auto) 0.3 Neut # 23.1 H Lymph # 0.4 L [place] # 0.9 H Eos # 0.0 Baso # 0.1 Neutrophils % (Manual) 92 H Lymphocytes % (Manual) 3 L Monocytes % (Manual) 5 Platelet Estimate Normal pCO2 pO2 HCO3 ABG pH ABG Total CO2 ABG O2 Saturation ABG O2 Content ABG Base Excess ABG Hemoglobin ABG Carboxyhemoglobin POC ABG HHb (Measured) ABG Methemoglobin ABG O2 Capacity [place] Test A-a O2 Difference Hgb O2 Saturation Liter Flow Vent Mode FiO2 Sodium 139 139 Potassium 3.7 3.6 Chloride 108 H 106 Carbon Dioxide 23 25 Anion Gap 12 11 BUN 8 11 Creatinine 0.7 0.7 Est GFR ( Amer) > 60 > 60 Est GFR (Non-Af Amer) > 60 > 60 Random Glucose 133 H 88 Calcium 8.1 L 8.0 L Total Bilirubin 1.0 0.6 AST 21 30 ALT 25 31 Alkaline Phosphatase 46 44 Total Protein 5.2 L 5.3 L Albumin 3.1 L 3.0 L Globulin 2.1 L 2.3 Albumin/Globulin Ratio 1.5 1.3 Blood Type Blood Type Confirm Antibody Screen Crossmatch BBK History Checked 12/09/16 07:45 WBC 12.7 H RBC 3.63 L Hgb 10.9 L Hct 32.3 L MCV 89.1 MCH 30.0 MCHC 33.7 RDW 13.7 Plt Count 206 MPV 8.7 Neut % (Auto) 82.7 H Lymph % (Auto) 10.0 L [place] % (Auto) 6.7 Eos % (Auto) 0.3 Baso % (Auto) 0.3 Neut # 10.5 H Lymph # 1.3 [place] # 0.8 Eos # 0.0 Baso # 0.0 Neutrophils % (Manual) Lymphocytes % (Manual) Monocytes % (Manual) Platelet Estimate pCO2 pO2 HCO3 ABG pH ABG Total CO2 ABG O2 Saturation ABG O2 Content ABG Base Excess ABG Hemoglobin ABG Carboxyhemoglobin POC ABG HHb (Measured) ABG Methemoglobin ABG O2 Capacity [place]sendo Test A-a O2 Difference Hgb O2 Saturation Liter Flow Vent Mode FiO2 Sodium Potassium Chloride Carbon Dioxide Anion Gap BUN Creatinine Est GFR ( Amer) Est GFR (Non-Af Amer) Random Glucose Calcium Total Bilirubin AST ALT Alkaline Phosphatase Total Protein Albumin Globulin Albumin/Globulin Ratio Blood Type Blood Type Confirm Antibody Screen Crossmatch BBK History Checked Review of Systems - Cardiovascular Cardiovascular: absent: Chest Pain, Chest Pain at Rest, Chest Pain with Activity - Respiratory Respiratory: absent: Cough, Dyspnea, Hemoptysis, Dyspnea on Exertion, Wheezing - Gastrointestinal Gastrointestinal: Abdominal Pain (difuse, mild Abd pain) Critical Care Progress Note - Nutrition Nutrition: Nutrition Category Date Time Status NPO Diet [DIET] Diets 12/08/16 Breakfast Active Assessment/Plan (1) LLQ abdominal mass Current Visit: Yes Status: Acute - Assessment and Plan (Free Text) Assessment: Admitted to SICU for hemodynamic monitoring Monitor LABS/LYTES/CBC, XR, time study observer Respiratory status for Respiratory depression PRN Naloxone for RR<8 IV Hydration with 0.9% NS @ 125 ml/hr Perioperative Antibiotics as per surgery Pain control with MORPHIN STREETCAR REPAIRER HELPER/ IV Toradol NPO, only sips of water NG Tube removed Bowel regimen PT/OT/OOB Monitor urine output Weiss to be removed tomorrow PRN Ondansetron Wound care Tight glycemic control OOB chair, fall precautions, aspiration precaution Incentive spirometry Aggressive pulmonary toilet. GI/DVT PPX with SCDs, LMWH
[2016-12-09] MEDS: Enoxaparin 40 mg Syringe SC SCH (08:59)
[2016-12-09] MEDS ORDERED: Enoxaparin 40 mg Syringe ONE (09:00)
[2016-12-09] MEDS ORDERED: Sodium Bicarbonate 7.5% (0.9 MEQ/ML) 50ML INJ IV ONE (09:00)
[2016-12-09] MEDS ORDERED: Magnesium Sulfate 2 gm/50 ml 2 GM/50 ML BAG IVPB ONE (21:05)
[2016-12-10] MEDS: Potassium CL 10mEq/100ml 100 ML IVPB SCH ×2 (00:35→06:00)
[2016-12-10] MEDS: cefOXitin Sodium 1 GM in Dextrose 5% In Water 50 ML IV SCH ×4 (04:00→21:52)
[2016-12-10 07:48] LABS: BASO % 0.4 % (0.0-2.0); EOS # 0.7 K/uL (0.0-0.7); EOS % 7.2 % (0.0-4.0); HEMOGLOBIN 9.3 g/dL (12.0-16.0); LYMPH # 1.1 K/uL (1.0-4.3); LYMPH % 11.6 % (20.0-40.0); MEAN CELL VOLUME 89.9 fl (81.0-99.0); MEAN CORPUSCULAR HEMOGLOBIN 29.9 pg (27.0-31.0); MEAN CORPUSCULAR HGB CONC 33.2 g/dL (33.0-37.0); MEAN PLATELET VOLUME 8.3 fl (7.2-11.7); MONO # 0.6 K/uL (0.0-0.8); MONO % 6.7 % (0.0-10.0); NEUT % 74.1 % (50.0-75.0); RBC 3.13 Mil/uL (3.80-5.20); RED CELL DISTRIBUTION WIDTH 12.9 % (11.5-14.5); WHITE BLOOD COUNT 9.4 K/uL (4.8-10.8)
[2016-12-10 07:49] LABS: ALB/GLOB RATIO 1.1 (1.0-2.1); ALBUMIN 2.5 g/dL (3.5-5.0); ALT/SGPT 34 U/L (9-52); AST/SGOT 42 U/L (14-36); BLOOD UREA NITROGEN 14 mg/dl (7-17); CALCIUM 7.9 mg/dL (8.4-10.2); GFR AFRICAN-AMERICAN > 60; GFR NON-AFRICAN AMERICAN > 60; MAGNESIUM 1.9 MG/DL (1.6-2.3)
--- NOTE | 2016-12-10 08:12 | CP.PCM.PN ---
Subjective - Date & Time of Evaluation Date of Evaluation: 12/10/16 Time of Evaluation: 06:15 - Subjective Subjective: SURGERY NOTE FOR DR. BRADY 36F seen and examined at bedside. States the pain is improved and has decreased use of the RESEARCH BIOLOGIST. She has been ambulating and has been out of bed on the chair. She states she has not passed gas yet. Urine output- 1200cc/24hrs. Objective - Vital Signs/Intake and Output Vital Signs (last 24 hours): Temp Pulse Resp BP Pulse Ox 98.6 F 90 17 93/49 L 100 12/10/16 04:00 12/10/16 06:00 12/10/16 06:00 12/10/16 06:00 12/10/16 06:00 Intake and Output: 12/10/16 12/10/16 06:59 18:59 Intake Total 1425 Output Total 500 Balance 925 - Medications Medications: Current Medications Artificial Tears (Artificial Tears) 2 drop OU Q4 PRN PRN Reason: Dry eyes Last Admin: 12/08/16 19:49 Dose: 2 drop Benzocaine/Menthol (Cepacol Sore Throat) 1 chadwick PO Q2 PRN PRN Reason: Sore Throat Last Admin: 12/08/16 19:37 Dose: 1 chadwick Enoxaparin Sodium (Lovenox) 40 mg SC DAILY CARLA PRN Reason: Protocol Last Admin: 12/09/16 08:59 Dose: 40 mg Hydromorphone HCl (Dilaudid 0.2 Mg/Ml Grain Elevator Worker) 0 mg IV PRN PRN; Protocol PRN Reason: Pain, moderate (4-7) Last Admin: 12/08/16 22:37 Dose: 6 mg Hydromorphone HCl (Dilaudid 0.2 Mg/Ml Grain Elevator Worker) 6 mg IV PRN PRN; Protocol PRN Reason: Pain, moderate (4-7) Last Admin: 12/10/16 03:37 Dose: 6 mg Cefoxitin Sodium 1 gm/ (Dextrose) 50 mls @ 50 mls/hr IV Q6 [facility] [place] Last Admin: 12/10/16 04:00 Dose: 50 mls/hr Lactated Ringer's (Lactated Ringer's) 1,000 mls @ 999 mls/hr IV .Q1H1M [facility] [place] Last Admin: 12/09/16 08:48 Dose: 999 mls/hr Ketorolac Tromethamine (Toradol) 30 mg IVP Q6 CARLA Stop: 12/11/16 16:01 Last Admin: 12/10/16 04:00 Dose: Not Given Morphine Sulfate (Morphine) 4 mg IVP Q4 PRN PRN Reason: Pain, severe (8-10) Last Admin: 12/09/16 07:48 Dose: 4 mg Naloxone HCl (Narcan) 0.1 mg IVP Q2M PRN PRN Reason: Opiate reversal Ondansetron HCl (Zofran Inj) 4 mg IVP Q4H PRN PRN Reason: Nausea/Vomiting Phenol/Menthol (Phenaseptic 1.4% Throat [place]) 1 spry MT Q2 PRN PRN Reason: Sore Throat Last Admin: 12/08/16 17:10 Dose: 1 spr - Labs Labs: 12/10/16 05:30 12/10/16 05:30 - Constitutional Appears: Non-toxic, No Acute Distress - Respiratory Exam Respiratory Exam: Clear to Ausculation Bilateral, NORMAL BREATHING PATTERN - Cardiovascular Exam Cardiovascular Exam: REGULAR RHYTHM, +S1, +S2 - GI/Abdominal Exam GI & Abdominal Exam: Soft, Tenderness. absent: Distended, Firm, Guarding, Rigid , Rebound Additional comments: midline abd dressing is CDI - Neurological Exam Neurological Exam: Alert, Awake - Skin Skin Exam: Dry, Intact, Normal Color, Warm Assessment and Plan - Assessment and Plan (Free Text) Assessment: 40 yo F w/ endometriosis s/p Laparotomy with resection of pelvic mass, POD #2 -NPO with sips of water and ice chips -Weiss to remain in place for several days, Monitor I/O -Pain control with RESEARCH BIOLOGIST and Toradol atc, Morphine for breakthrough pain -OOB to chair and encourage incentive spirometer -DVT px -Surgical team is to be paged for any and all issues regarding the patient. 24Hr weekend pager: [phone] Further recs discuss with Dr. Shadi Jones, PGY1
[2016-12-10] MEDS: Enoxaparin 40 mg Syringe SC SCH (08:46)
--- NOTE | 2016-12-10 12:23 | CP.CCUPN ---
CCU Subjective - Physician Review Events Since Last Encounter (Free Text): 12/10/16 12:20 Patient has mild RUQ pain, near diaphragm. CCU Objective - Vital Signs / Intake & Output Vital Signs (Last 4 hours): Vital Signs Pulse Resp BP Pulse Ox 12/10/16 10:00 78 17 91/60 L 100 Intake and Output (Last 8hrs): Intake & Output 12/09/16 12/10/16 12/10/16 22:59 06:59 14:59 Intake Total 475 950 500 Output Total 500 Balance 475 450 500 Intake: IV 375 750 500 Intake, Piggyback 100 200 Output: Urine 500 Urethral (Toney) 500 - Physical Exam Head: Positive for: Atraumatic, Normocephalic Pupils: Positive for: PERRL. Negative for: Sluggish, Non-Reactive Extroacular Muscles: Positive for: EOMI. Negative for: Gaze Palsy, Entrapment Conjunctiva: Positive for: Normal. Negative for: Injected Ears: Positive for: Normal Mouth: Positive for: Moist Mucous Membranes Pharnyx: Positive for: Normal Nose (Internal): Positive for: Normal Inspection Neck: Positive for: Normal Range of Motion, Trachea Midline. Negative for: Meningeal Signs, MIDLINE TENDERNESS, Paraspinal Tenderness, JVD, Lymphadenopathy , Bruit, Other Respiratory/Chest: Positive for: Clear to Auscultation, Good Air Exchange. Negative for: Respiratory Distress, Accessory Muscle Use, Wheezes, Rales, Rhonchi Cardiovascular: Positive for: Regular Rate and Rhythm, Normal S1, S2, Peripheal Pulses Present. Negative for: Murmurs, Irregular Rhythm, Tachycardic, Bradycardic Abdomen: Positive for: Tenderness (RUQ), Other (Midline abdominal surgical incision covered with dressing, CDI W/O drainage/erythema). Negative for: Normal Bowel Sounds, Peritoneal Signs Upper Extremity: Positive for: Normal Inspection, NORMAL PULSES, Capillary Refill < 2s. Negative for: Cyanosis, Edema Lower Extremity: Positive for: Edema, NORMAL PULSES, Capillary Refill < 2 s Neurological: Positive for: GCS=15, CN II-XII Intact, Speech Normal, Motor Func Grossly Intact, Normal Sensory Function Skin: Positive for: Warm, Dry Psychiatric: Positive for: Alert, Oriented x 3, Normal Insight, Normal Concentration - Medications Active Medications: Active Medications Generic Name Dose Route Start Last Admin Trade Name Freq PRN Reason Stop Dose Admin Artificial Tears 2 drop 12/08/16 19:34 12/08/16 19:49 Artificial Tears OU 2 drop Q4 PRN Administration Dry eyes Benzocaine/Menthol 1 chadwick 12/08/16 15:53 12/08/16 19:37 Cepacol Sore Throat PO 1 chadwick Q2 PRN Administration Sore Throat Enoxaparin Sodium 40 mg 12/09/16 09:00 12/10/16 08:46 Lovenox SC 40 mg DAILY CARLA Administration Protocol Hydromorphone HCl 0 mg 12/08/16 11:39 12/08/16 22:37 Dilaudid 0.2 Mg/Ml Vascular Ultrasound Technician IV 6 mg PRN PRN Administration Pain, moderate (4-7) Protocol Cefoxitin Sodium 1 gm/ 50 mls @ 50 mls/hr 12/08/16 22:00 12/10/16 09:00 Dextrose IV 50 mls/hr Q6 CARLA Administration Potassium Chloride 40 meq/ 1,095 mls @ 75 mls/hr 12/10/16 11:00 12/10/16 12: 18 Sodium Bicarbonate 75 meq/ IV 12/11/16 10:46 75 mls/hr Sodium Chloride .[id number] CARLA Administration Ketorolac Tromethamine 30 mg 12/08/16 16:00 12/10/16 09:38 Toradol IVP 12/11/16 16:01 30 mg Q6 CARLA Administration Morphine Sulfate 4 mg 12/08/16 15:52 12/09/16 07:48 Morphine IVP 4 mg Q4 PRN Administration Pain, severe (8-10) Naloxone HCl 0.1 mg 12/08/16 11:41 Narcan IVP Q2M PRN Opiate reversal Ondansetron HCl 4 mg 12/08/16 11:41 Zofran Inj IVP Q4H PRN Nausea/Vomiting Phenol/Menthol 1 spry 12/08/16 15:53 12/08/16 17:10 Phenaseptic 1.4% Throat [place] 1 spr Q2 PRN Administration Sore Throat - Patient Studies Lab Studies: Microbiology Studies 12/08/16 14:30 MRSA Culture (Admit) - Final Naris MRSA NOT DETECTED Lab Studies 12/10/16 12/10/16 Range/Units 05:30 05:30 WBC 9.4 (4.8-10.8) K/uL RBC 3.13 L (3.80-5.20) Mil/uL Hgb 9.3 L (12.0-16.0) g/dL Hct 28.1 L (34.0-47.0) % MCV 89.9 (81.0-99.0) fl MCH 29.9 (27.0-31.0) pg MCHC 33.2 (33.0-37.0) g/dL RDW 12.9 (11.5-14.5) % Plt Count 169 (130-400) K/uL MPV 8.3 (7.2-11.7) fl Neut % (Auto) 74.1 (50.0-75.0) % Lymph % (Auto) 11.6 L (20.0-40.0) % Conway % (Auto) 6.7 (0.0-10.0) % Eos % (Auto) 7.2 H (0.0-4.0) % Baso % (Auto) 0.4 (0.0-2.0) % Neut # 7.0 (1.8-7.0) K/uL Lymph # 1.1 (1.0-4.3) K/uL [place] # 0.6 (0.0-0.8) K/uL Eos # 0.7 (0.0-0.7) K/uL Baso # 0.0 (0.0-0.2) K/uL Sodium 138 (132-148) mmol/l Potassium 3.7 (3.6-5.0) MMOL/L Chloride 108 H (98-107) mmol/L Carbon Dioxide 23 (22-30) mmol/L Anion Gap 11 (10-20) BUN 14 (7-17) mg/dl Creatinine 0.7 (0.7-1.2) mg/dL Est GFR ( Amer) > 60 Est GFR (Non-Af Amer) > 60 Random Glucose 61 L (65-105) mg/dL Calcium 7.9 L (8.4-10.2) mg/dL Magnesium 1.9 (1.6-2.3) MG/DL Total Bilirubin 0.4 (0.2-1.3) mg/dl AST 42 H D (14-36) U/L ALT 34 (9-52) U/L Alkaline Phosphatase 44 (38-126) U/L Total Protein 4.8 L (6.3-8.2) G/DL Albumin 2.5 L (3.5-5.0) g/dL Globulin 2.2 (2.2-3.9) gm/dL Albumin/Globulin Ratio 1.1 (1.0-2.1) Laboratory Results - last 24 hr 12/10/16 12/10/16 05:30 05:30 WBC 9.4 RBC 3.13 L Hgb 9.3 L Hct 28.1 L MCV 89.9 MCH 29.9 MCHC 33.2 RDW 12.9 Plt Count 169 MPV 8.3 Neut % (Auto) 74.1 Lymph % (Auto) 11.6 L Conway % (Auto) 6.7 Eos % (Auto) 7.2 H Baso % (Auto) 0.4 Neut # 7.0 Lymph # 1.1 Conway # 0.6 Eos # 0.7 Baso # 0.0 Sodium 138 Potassium 3.7 Chloride 108 H Carbon Dioxide 23 Anion Gap 11 BUN 14 Creatinine 0.7 Est GFR ( Amer) > 60 Est GFR (Non-Af Amer) > 60 Random Glucose 61 L Calcium 7.9 L Magnesium 1.9 Total Bilirubin 0.4 AST 42 H D ALT 34 Alkaline Phosphatase 44 Total Protein 4.8 L Albumin 2.5 L Globulin 2.2 Albumin/Globulin Ratio 1.1 Review of Systems - Review of Systems All systems: reviewed and no additional remarkable complaints except - Gastrointestinal Gastrointestinal: Abdominal Pain Critical Care Progress Note - Nutrition Nutrition: Nutrition Category Date Time Status NPO Diet [DIET] Diets 12/08/16 Breakfast Active Assessment/Plan (1) Abdominal mass Assessment and plan: 36yo F. PMHx of endometriosis, appendectomy. p/w abdominal pain secondary to large cystic mass in abdomen seen on CT abdomen (12/07). Underwent ex-lap with excision of retroperitoneal mass, bilateral ureterolysis, sigmoid colon resection, partial urinary bladder resection with cystorrhaphy, left oopherectomy, excision of peritoneal endometriosis, excision of uterine adenomyosis. EBL - 1000ml. Admitted to ICU for post-op monitoring. 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 Incentive Spirometry q1h. CV: Hemodynamically stable. Hem: Post-op blood loss anemia, possibly also dilutional, patient is many liters positive fluid balance, will monitor. Renal: hyperchloremic and hypokalemic, 1/2NS+75meq SB+40 meq KCL@75m/hr. urine output wnl. Endo: No acute issues GI: Nothing by mouth. Hypoalbuminemic with protein calorie malnutrition and critical illness, early feeding is suggested to prevent bowel atrophy and improve nutritional status. ID: Empiric coverage with cefoxitin q6h, as per surgical team. DVT proph - Lovenox GI proph - not currently indicated toney for strict I/O's during acute illness OOB to chair Code status - full code Critical Care Time spent 35 minutes Multi-disciplinary rounds were performed with house staff, nursing, speech therapy, respiratory therapy, pharmacy and nutrition with integrated input from the primary team/attending and other consulting services. The documented time is cumulative and includes review of patient data/exams/labs/chart review and examination of the patient on rounds and throughout the day; time is exclusive of any procedures or teaching time. Current Visit: Yes Status: Acute
[2016-12-11] MEDS: cefOXitin Sodium 1 GM in Dextrose 5% In Water 50 ML IV SCH ×2 (03:01→09:20)
[2016-12-11 05:10] LABS: HEMOGLOBIN 9.8 g/dL (12.0-16.0); MEAN CELL VOLUME 89.1 fl (81.0-99.0); MEAN CORPUSCULAR HEMOGLOBIN 29.7 pg (27.0-31.0); MEAN CORPUSCULAR HGB CONC 33.4 g/dL (33.0-37.0); RBC 3.31 Mil/uL (3.80-5.20); RED CELL DISTRIBUTION WIDTH 12.8 % (11.5-14.5); WHITE BLOOD COUNT 9.3 K/uL (4.8-10.8)
[2016-12-11 05:19] LABS: ALB/GLOB RATIO 1.1 (1.0-2.1); ALBUMIN 2.6 g/dL (3.5-5.0); ALT/SGPT 36 U/L (9-52); AST/SGOT 34 U/L (14-36); BLOOD UREA NITROGEN 10 mg/dl (7-17); CALCIUM 8.1 mg/dL (8.4-10.2); GFR AFRICAN-AMERICAN > 60; GFR NON-AFRICAN AMERICAN > 60
--- NOTE | 2016-12-11 08:05 | CP.PCM.PN ---
Subjective - Date & Time of Evaluation Date of Evaluation: 12/11/16 Time of Evaluation: 08:03 - Subjective Subjective: Surgery: Dr. Hsu Pt seen and examined. Resting comfortably in bed. Pain is improved. Controlled w. pain meds. Pt has been OOB and ambulating limitedly. She reports night sweats and chills. Passing flatus. No BM. Would like to start diet. Objective - Vital Signs/Intake and Output Vital Signs (last 24 hours): Temp Pulse Resp BP Pulse Ox 98.4 F 67 18 98/55 L 100 12/11/16 04:00 12/11/16 06:00 12/11/16 06:00 12/11/16 06:00 12/11/16 06:00 Intake and Output: 12/11/16 12/11/16 06:59 18:59 Intake Total 775 75 Output Total 1250 Balance -475 75 - Medications Medications: Current Medications Artificial Tears (Artificial Tears) 2 drop OU Q4 PRN PRN Reason: Dry eyes Last Admin: 12/08/16 19:49 Dose: 2 drop Benzocaine/Menthol (Cepacol Sore Throat) 1 chadwick PO Q2 PRN PRN Reason: Sore Throat Last Admin: 12/08/16 19:37 Dose: 1 chadwick Enoxaparin Sodium (Lovenox) 40 mg SC DAILY CARLA PRN Reason: Protocol Last Admin: 12/10/16 08:46 Dose: 40 mg Hydromorphone HCl (Dilaudid 0.2 Mg/Ml Eligibility Counselor) 0 mg IV PRN PRN; Protocol PRN Reason: Pain, moderate (4-7) Last Admin: 12/08/16 22:37 Dose: 6 mg Cefoxitin Sodium 1 gm/ (Dextrose) 50 mls @ 50 mls/hr IV Q6 CARLA Last Admin: 12/11/16 03:01 Dose: 50 mls/hr Potassium Chloride 40 meq/Sodium Bicarbonate 75 meq/Sodium Chloride 1,095 mls @ 75 mls/hr IV .[id number] [facility] Stop: 12/11/16 10:46 Last Admin: 12/11/16 04:40 Dose: 75 mls/hr Ketorolac Tromethamine (Toradol) 30 mg IVP Q6 CARLA Stop: 12/11/16 16:01 Last Admin: 12/11/16 04:39 Dose: 30 mg Naloxone HCl (Narcan) 0.1 mg IVP Q2M PRN PRN Reason: Opiate reversal Ondansetron HCl (Zofran Inj) 4 mg IVP Q4H PRN PRN Reason: Nausea/Vomiting Oxycodone/Acetaminophen (Percocet 5/325 Mg Tab) 1 tab PO Q4 PRN PRN Reason: Pain, moderate (4-7) Stop: 12/14/16 07:50 Phenol/Menthol (Phenaseptic 1.4% Throat White) 1 spry MT Q2 PRN PRN Reason: Sore Throat Last Admin: 12/08/16 17:10 Dose: 1 spr - Labs Labs: 12/11/16 04:30 12/11/16 04:30 - Constitutional Appears: Non-toxic, No Acute Distress - Head Exam Head Exam: ATRAUMATIC, NORMOCEPHALIC - Eye Exam Eye Exam: EOMI - ENT Exam ENT Exam: Mucous Membranes Moist - Neck Exam Neck Exam: Full ROM - Respiratory Exam Respiratory Exam: NORMAL BREATHING PATTERN. absent: Accessory Muscle Use, Respiratory Distress - GI/Abdominal Exam GI & Abdominal Exam: Soft, Tenderness (mahi-incisional). absent: Distended, Firm, Guarding, Rigid, Rebound Additional comments: incision C/D/I - Extremities Exam Extremities Exam: absent: Calf Tenderness, Pedal Edema - Neurological Exam Neurological Exam: Alert, Awake, Oriented x3 Assessment and Plan - Assessment and Plan (Free Text) Assessment: 40 yo F w/ endometriosis s/p Laparotomy with resection of pelvic mass, POD #3 -start CLD, monitor bowel fxn, ADAT -night sweats: f/u blood and urine cx -keep toney in place -c/w current medical management -encourage OOB, ambulation, and IS use -d/w attending Zemaitis PGY3
[2016-12-11] MEDS: Enoxaparin 40 mg Syringe SC SCH (08:19)
[2016-12-11] MEDS: Oxycodone/Acetaminophen 5/325 mg Tab PO PRN ×2 (12:02→18:18)
--- NOTE | 2016-12-11 12:10 | CP.CCUPN ---
CCU Subjective - Physician Review Events Since Last Encounter (Free Text): 12/11/16 12:13 Patient is much improved today, still has intermittent abdominal pain. CCU Objective - Vital Signs / Intake & Output Vital Signs (Last 4 hours): Vital Signs Temp Pulse Resp BP Pulse Ox 12/11/16 12:00 98.3 F 75 18 100/60 100 12/11/16 11:00 75 16 94/55 L 100 12/11/16 10:00 67 18 101/56 L 100 12/11/16 09:00 77 16 88/53 L 100 Intake and Output (Last 8hrs): Intake & Output 12/10/16 12/11/16 12/11/16 22:59 06:59 14:59 Intake Total 625 550 275 Output Total 700 1250 Balance -75 -700 275 Intake: IV 525 450 225 Intake, Piggyback 100 100 50 Output: Urine 700 1250 Urethral (Toney) 1250 Urine, Voided 700 - Physical Exam Head: Positive for: Atraumatic, Normocephalic Pupils: Positive for: PERRL. Negative for: Sluggish, Non-Reactive Extroacular Muscles: Positive for: EOMI. Negative for: Gaze Palsy, Entrapment Conjunctiva: Positive for: Normal. Negative for: Injected Ears: Positive for: Normal Mouth: Positive for: Moist Mucous Membranes Pharnyx: Positive for: Normal Nose (Internal): Positive for: Normal Inspection Neck: Positive for: Normal Range of Motion, Trachea Midline. Negative for: Meningeal Signs, MIDLINE TENDERNESS, Paraspinal Tenderness, JVD, Lymphadenopathy , Bruit, Other Respiratory/Chest: Positive for: Clear to Auscultation, Good Air Exchange. Negative for: Respiratory Distress, Accessory Muscle Use, Wheezes, Rales, Rhonchi Cardiovascular: Positive for: Regular Rate and Rhythm, Normal S1, S2, Peripheal Pulses Present. Negative for: Murmurs, Irregular Rhythm, Tachycardic, Bradycardic Abdomen: Positive for: Tenderness (RUQ), Other (Midline abdominal surgical incision covered with dressing, CDI W/O drainage/erythema). Negative for: Normal Bowel Sounds, Peritoneal Signs Upper Extremity: Positive for: Normal Inspection, NORMAL PULSES, Capillary Refill < 2s. Negative for: Cyanosis, Edema Lower Extremity: Positive for: Edema, NORMAL PULSES, Capillary Refill < 2 s Neurological: Positive for: GCS=15, CN II-XII Intact, Speech Normal, Motor Func Grossly Intact, Normal Sensory Function Skin: Positive for: Warm, Dry Psychiatric: Positive for: Alert, Oriented x 3, Normal Insight, Normal Concentration - Medications Active Medications: Active Medications Generic Name Dose Route Start Last Admin Trade Name Freq PRN Reason Stop Dose Admin Artificial Tears 2 drop 12/08/16 19:34 12/08/16 19:49 Artificial Tears OU 2 drop Q4 PRN Administration Dry eyes Benzocaine/Menthol 1 chadwick 12/08/16 15:53 12/08/16 19:37 Cepacol Sore Throat PO 1 chadwick Q2 PRN Administration Sore Throat Enoxaparin Sodium 40 mg 12/09/16 09:00 12/11/16 08:19 Lovenox SC 40 mg DAILY CARLA Administration Protocol Hydromorphone HCl 0 mg 12/08/16 11:39 12/08/16 22:37 Dilaudid 0.2 Mg/Ml Identifier Horse IV 6 mg PRN PRN Administration Pain, moderate (4-7) Protocol Ketorolac Tromethamine 30 mg 12/08/16 16:00 12/11/16 09:21 Toradol IVP 12/11/16 16:01 30 mg Q6 CARLA Administration Naloxone HCl 0.1 mg 12/08/16 11:41 Narcan IVP Q2M PRN Opiate reversal Ondansetron HCl 4 mg 12/08/16 11:41 Zofran Inj IVP Q4H PRN Nausea/Vomiting Oxycodone/Acetaminophen 1 tab 12/11/16 07:49 12/11/16 12:02 Percocet 5/325 Mg Tab PO 12/14/16 07:50 1 tab Q4 PRN Administration Pain, moderate (4-7) Phenol/Menthol 1 spry 12/08/16 15:53 12/08/16 17:10 Phenaseptic 1.4% Throat [place] 1 spr Q2 PRN Administration Sore Throat - Patient Studies Lab Studies: Microbiology Studies 12/08/16 14:30 MRSA Culture (Admit) - Final Naris MRSA NOT DETECTED Lab Studies 12/11/16 12/11/16 12/08/16 Range/Units 04:30 04:30 05:50 WBC 9.3 (4.8-10.8) K/uL RBC 3.31 L (3.80-5.20) Mil/uL Hgb 9.8 L (12.0-16.0) g/dL Hct 29.4 L (34.0-47.0) % MCV 89.1 (81.0-99.0) fl MCH 29.7 (27.0-31.0) pg MCHC 33.4 (33.0-37.0) g/dL RDW 12.8 (11.5-14.5) % Plt Count 187 (130-400) K/uL Sodium 139 (132-148) mmol/l Potassium 4.2 (3.6-5.0) MMOL/L Chloride 109 H (98-107) mmol/L Carbon Dioxide 20 L (22-30) mmol/L Anion Gap 14 (10-20) BUN 10 (7-17) mg/dl Creatinine 0.6 L (0.7-1.2) mg/dL Est GFR ( Amer) > 60 Est GFR (Non-Af Amer) > 60 Random Glucose 67 (65-105) mg/dL Calcium 8.1 L (8.4-10.2) mg/dL Total Bilirubin 0.5 (0.2-1.3) mg/dl AST 34 (14-36) U/L ALT 36 (9-52) U/L Alkaline Phosphatase 44 (38-126) U/L Total Protein 4.9 L (6.3-8.2) G/DL Albumin 2.6 L (3.5-5.0) g/dL Globulin 2.3 (2.2-3.9) gm/dL Albumin/Globulin Ratio 1.1 (1.0-2.1) Crossmatch See Detail Laboratory Results - last 24 hr 12/08/16 12/11/16 12/11/16 05:50 04:30 04:30 WBC 9.3 RBC 3.31 L Hgb 9.8 L Hct 29.4 L MCV 89.1 MCH 29.7 MCHC 33.4 RDW 12.8 Plt Count 187 Sodium 139 Potassium 4.2 Chloride 109 H Carbon Dioxide 20 L Anion Gap 14 BUN 10 Creatinine 0.6 L Est GFR ( Amer) > 60 Est GFR (Non-Af Amer) > 60 Random Glucose 67 Calcium 8.1 L Total Bilirubin 0.5 AST 34 ALT 36 Alkaline Phosphatase 44 Total Protein 4.9 L Albumin 2.6 L Globulin 2.3 Albumin/Globulin Ratio 1.1 Crossmatch See Detail Review of Systems - Review of Systems All systems: reviewed and no additional remarkable complaints except - Gastrointestinal Gastrointestinal: Abdominal Pain Critical Care Progress Note - Nutrition Nutrition: Nutrition Category Date Time Status Liquid Diet [DIET] Diets 12/11/16 Lunch Active Assessment/Plan (1) Abdominal mass Assessment and plan: 36yo F. PMHx of endometriosis, appendectomy. p/w abdominal pain secondary to large cystic mass in abdomen seen on CT abdomen (12/07). Underwent ex-lap with excision of retroperitoneal mass, bilateral ureterolysis, sigmoid colon resection, partial urinary bladder resection with cystorrhaphy, left oopherectomy, excision of peritoneal endometriosis, excision of uterine adenomyosis. EBL - 1000ml. Admitted to ICU for post-op monitoring. Neuro: Alert and oriented 3, toradol q6h x 72h max, percocet prn Pulm: No acute issues, breathing spontaneously on room air. Incentive Spirometry q1h. CV: Hemodynamically stable. Hem: Post-op blood loss anemia, possibly also dilutional, patient is many liters positive fluid balance, currently stable. Renal: mild gapped metabolic acidosis, decreasing 1/2NS+75meq SB+20 meq KCL@60 /hr. urine output wnl. Endo: No acute issues GI: starting clear liquid diet. ID: Empiric coverage with cefoxitin q6h, as per surgical team. DVT proph - Lovenox GI proph - not currently indicated toney for strict I/O's during acute illness OOB to chair Code status - full code Critical Care Time spent 35 minutes Multi-disciplinary rounds were performed with house staff, nursing, speech therapy, respiratory therapy, pharmacy and nutrition with integrated input from the primary team/attending and other consulting services. The documented time is cumulative and includes review of patient data/exams/labs/chart review and examination of the patient on rounds and throughout the day; time is exclusive of any procedures or teaching time. Current Visit: Yes Status: Acute
--- NOTE | 2016-12-11 16:23 | CP.PCM.PN ---
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 Otherwise ambulating well Objective - Vital Signs/Intake and Output Vital Signs (last 24 hours): Temp Pulse Resp BP Pulse Ox 98.3 F 72 21 111/60 100 12/11/16 12:00 12/11/16 14:00 12/11/16 14:00 12/11/16 14:00 12/11/16 14:00 Intake and Output: 12/11/16 12/11/16 06:59 18:59 Intake Total 775 935 Output Total 1250 Balance -475 935 - Medications Medications: Current Medications Artificial Tears (Artificial Tears) 2 drop OU Q4 PRN PRN Reason: Dry eyes Last Admin: 12/08/16 19:49 Dose: 2 drop Benzocaine/Menthol (Cepacol Sore Throat) 1 chadwick PO Q2 PRN PRN Reason: Sore Throat Last Admin: 12/08/16 19:37 Dose: 1 chadwick Enoxaparin Sodium (Lovenox) 40 mg SC DAILY CARLA PRN Reason: Protocol Last Admin: 12/11/16 08:19 Dose: 40 mg Hydromorphone HCl (Dilaudid 0.2 Mg/Ml Cloth Worker) 0 mg IV PRN PRN; Protocol PRN Reason: Pain, moderate (4-7) Last Admin: 12/08/16 22:37 Dose: 6 mg Naloxone HCl (Narcan) 0.1 mg IVP Q2M PRN PRN Reason: Opiate reversal Ondansetron HCl (Zofran Inj) 4 mg IVP Q4H PRN PRN Reason: Nausea/Vomiting Oxycodone/Acetaminophen (Percocet 5/325 Mg Tab) 1 tab PO Q4 PRN PRN Reason: Pain, moderate (4-7) Stop: 12/14/16 07:50 Last Admin: 12/11/16 12:02 Dose: 1 tab Phenol/Menthol (Phenaseptic 1.4% Throat [place]) 1 spry MT Q2 PRN PRN Reason: Sore Throat Last Admin: 12/08/16 17:10 Dose: 1 spr - Labs Labs: 12/11/16 04:30 12/11/16 04:30 Assessment and Plan (1) Abdominal pain Assessment & Plan: responing well to post op pain management Status: Acute (2) Hot flash not due to menopause Assessment & Plan: iatrogenic menopausal symptoms, for now hold off estrogen due to risk of dvt Status: Acute
[2016-12-12] MEDS: Oxycodone/Acetaminophen 5/325 mg Tab PO PRN ×5 (00:01→20:59)
[2016-12-12 00:31] LABS: HEMOGLOBIN 10.4 g/dL (12.0-16.0); MEAN CELL VOLUME 89.4 fl (81.0-99.0); MEAN CORPUSCULAR HEMOGLOBIN 29.2 pg (27.0-31.0); MEAN CORPUSCULAR HGB CONC 32.7 g/dL (33.0-37.0); RBC 3.54 Mil/uL (3.80-5.20); RED CELL DISTRIBUTION WIDTH 13.4 % (11.5-14.5); WHITE BLOOD COUNT 11.5 K/uL (4.8-10.8)
[2016-12-12 01:20] LABS: BLOOD UREA NITROGEN 12 mg/dl (7-17); CALCIUM 8.2 mg/dL (8.4-10.2); GFR AFRICAN-AMERICAN > 60; GFR NON-AFRICAN AMERICAN > 60; MAGNESIUM 1.4 MG/DL (1.6-2.3)
[2016-12-12 01:21] LABS: ALB/GLOB RATIO 1.3 (1.0-2.1); ALBUMIN 2.9 g/dL (3.5-5.0)
[2016-12-12 01:22] LABS: ALT/SGPT 34 U/L (9-52); AST/SGOT 42 U/L (14-36)
[2016-12-12 07:10] LABS: BASO % 0.3 % (0.0-2.0); EOS # 0.8 K/uL (0.0-0.7); EOS % 10.9 % (0.0-4.0); LYMPH % 13.2 % (20.0-40.0); MEAN CELL VOLUME 86.9 fl (81.0-99.0); MEAN CORPUSCULAR HEMOGLOBIN 30.1 pg (27.0-31.0); MEAN CORPUSCULAR HGB CONC 34.6 g/dL (33.0-37.0); MEAN PLATELET VOLUME 8.1 fl (7.2-11.7); MONO # 0.5 K/uL (0.0-0.8); MONO % 7.1 % (0.0-10.0); NEUT # 5.2 K/uL (1.8-7.0); NEUT % 68.5 % (50.0-75.0); NRBC % 0.1 % (0.0-0.0); RBC 2.98 Mil/uL (3.80-5.20); RED CELL DISTRIBUTION WIDTH 12.9 % (11.5-14.5); WHITE BLOOD COUNT 7.6 K/uL (4.8-10.8)
[2016-12-12 07:36] LABS: ALB/GLOB RATIO 1.2 (1.0-2.1); ALBUMIN 2.7 g/dL (3.5-5.0); ALT/SGPT 39 U/L (9-52); AST/SGOT 26 U/L (14-36); BLOOD UREA NITROGEN 6 mg/dl (7-17); CALCIUM 7.5 mg/dL (8.4-10.2); GFR AFRICAN-AMERICAN > 60; GFR NON-AFRICAN AMERICAN > 60
--- NOTE | 2016-12-12 09:25 | CP.PCM.PN ---
Subjective - Date & Time of Evaluation Date of Evaluation: 12/12/16 Time of Evaluation: 07:00 - Subjective Subjective: Surgery progress note for Dr. Hsu Patient s/e at bedside this AM. Patient had a cough with some phlegm irritating her throat overnight with back pain and hot flashes this AM. Denies hemoptysis, SOB, chest pain, fevers, chills, nausea, vomiting, or dysuria. Patient states that she tolerated the CLD well and is passing gas but has not yet had a bowel movement. Objective - Vital Signs/Intake and Output Vital Signs (last 24 hours): Temp Pulse Resp BP Pulse Ox 98.1 F 56 L 13 111/69 100 12/12/16 08:00 12/12/16 08:00 12/12/16 08:00 12/12/16 08:00 12/12/16 08:00 Intake and Output: 12/12/16 12/12/16 06:59 18:59 Intake Total 1080 340 Output Total 1700 Balance -620 340 - Medications Medications: Current Medications Artificial Tears (Artificial Tears) 2 drop OU Q4 PRN PRN Reason: Dry eyes Last Admin: 12/08/16 19:49 Dose: 2 drop Benzocaine/Menthol (Cepacol Sore Throat) 1 chadwick PO Q2 PRN PRN Reason: Sore Throat Last Admin: 12/08/16 19:37 Dose: 1 chadwick Hydromorphone HCl (Dilaudid 0.2 Mg/Ml Consumer Studies Professor) 0 mg IV PRN PRN; Protocol PRN Reason: Pain, moderate (4-7) Last Admin: 12/08/16 22:37 Dose: 6 mg Naloxone HCl (Narcan) 0.1 mg IVP Q2M PRN PRN Reason: Opiate reversal Ondansetron HCl (Zofran Inj) 4 mg IVP Q4H PRN PRN Reason: Nausea/Vomiting Oxycodone/Acetaminophen (Percocet 5/325 Mg Tab) 1 tab PO Q4 PRN PRN Reason: Pain, moderate (4-7) Stop: 12/14/16 07:50 Last Admin: 12/12/16 07:51 Dose: 1 tab Phenol/Menthol (Phenaseptic 1.4% Throat [place]) 1 spry MT Q2 PRN PRN Reason: Sore Throat Last Admin: 12/08/16 17:10 Dose: 1 spr - Labs Labs: 12/12/16 07:02 12/12/16 07:02 - Constitutional Appears: Well, Non-toxic, No Acute Distress - Head Exam Head Exam: ATRAUMATIC, NORMOCEPHALIC - ENT Exam ENT Exam: Mucous Membranes Moist, Normal Oropharynx - Respiratory Exam Respiratory Exam: NORMAL BREATHING PATTERN. absent: Accessory Muscle Use, Respiratory Distress - Cardiovascular Exam Cardiovascular Exam: RRR - GI/Abdominal Exam GI & Abdominal Exam: Soft, Tenderness (diffuse tenderness appropriate for s/p surgery). absent: Distended Additional comments: Surgical incisions well approximated with dermabond, no drainage or bleeding - Extremities Exam Extremities Exam: absent: Calf Tenderness, Pedal Edema, Tenderness - Back Exam Back Exam: absent: CVA tenderness (L), CVA tenderness (R), rash noted - Neurological Exam Neurological Exam: Alert, Awake, Oriented x3 - Psychiatric Exam Psychiatric exam: Normal Affect, Normal Mood - Skin Skin Exam: Dry, Normal Color, Warm Assessment and Plan - Assessment and Plan (Free Text) Assessment: 40 yo F w/ endometriosis s/p Laparotomy with resection of pelvic mass, POD #4 Afebrile, VSS urine cultures: negative blood Cultures [id number] UOP 3000cc/24 Plan: -start CLD, monitor bowel fxn, ADAT -D/C toney -analgesia -c/w current medical management -encourage OOB, ambulation, and IS use D/w Dr. Shadi Burr, PGY2
[2016-12-12] MEDS: Enoxaparin 40 mg Syringe SC SCH (09:30)
[2016-12-12] MEDS: DESOGESTREL ETHINYL ESTRADIOL PO SCH (20:55)
[2016-12-13] MEDS: Oxycodone/Acetaminophen 5/325 mg Tab PO PRN ×6 (01:32→23:19)
[2016-12-13 07:02] LABS: BASO % 0.3 % (0.0-2.0); EOS # 0.8 K/uL (0.0-0.7); EOS % 7.5 % (0.0-4.0); LYMPH # 0.8 K/uL (1.0-4.3); LYMPH % 7.9 % (20.0-40.0); MEAN CELL VOLUME 88.6 fl (81.0-99.0); MEAN CORPUSCULAR HEMOGLOBIN 29.8 pg (27.0-31.0); MEAN CORPUSCULAR HGB CONC 33.7 g/dL (33.0-37.0); MEAN PLATELET VOLUME 8.3 fl (7.2-11.7); MONO # 0.7 K/uL (0.0-0.8); MONO % 6.6 % (0.0-10.0); NEUT # 8.1 K/uL (1.8-7.0); NEUT % 77.7 % (50.0-75.0); PLATELET COUNT 228 K/uL (130-400); RBC 3.34 Mil/uL (3.80-5.20); WHITE BLOOD COUNT 10.4 K/uL (4.8-10.8)
[2016-12-13 07:06] LABS: BLOOD UREA NITROGEN 5 mg/dl (7-17); CALCIUM 8.6 mg/dL (8.4-10.2); GFR AFRICAN-AMERICAN > 60; GFR NON-AFRICAN AMERICAN > 60
--- NOTE | 2016-12-13 07:56 | CP.PCM.PN ---
Subjective - Date & Time of Evaluation Date of Evaluation: 12/13/16 Time of Evaluation: 07:48 - Subjective Subjective: Surgery for Dr. Hsu Pt s&eKellie SOTO. Had regular BM. Tolerating CLD. +amb, +void, no bleeding. Doing well. Pain controlled. Objective - Vital Signs/Intake and Output Vital Signs (last 24 hours): Temp Pulse Resp BP Pulse Ox 98.6 F 67 19 107/64 98 12/12/16 23:49 12/12/16 23:49 12/12/16 23:49 12/12/16 23:49 12/12/16 23:49 - Medications Medications: Current Medications Artificial Tears (Artificial Tears) 2 drop OU Q4 PRN PRN Reason: Dry eyes Last Admin: 12/08/16 19:49 Dose: 2 drop Benzocaine/Menthol (Cepacol Sore Throat) 1 chadwick PO Q2 PRN PRN Reason: Sore Throat Last Admin: 12/08/16 19:37 Dose: 1 chadwick Home Med (Desogestrel-Ethinyl Estradiol [ 28 Day Tablet]) 1 tab PO DAILY CARLA Last Admin: 12/12/16 20:55 Dose: 1 tab Hydromorphone HCl (Dilaudid 0.2 Mg/Ml Gas Or Water Meter Installer) 0 mg IV PRN PRN; Protocol PRN Reason: Pain, moderate (4-7) Last Admin: 12/08/16 22:37 Dose: 6 mg Ketorolac Tromethamine (Toradol) 15 mg IVP Q6 PRN PRN Reason: Pain, moderate (4-7) Naloxone HCl (Narcan) 0.1 mg IVP Q2M PRN PRN Reason: Opiate reversal Ondansetron HCl (Zofran Inj) 4 mg IVP Q4H PRN PRN Reason: Nausea/Vomiting Oxycodone/Acetaminophen (Percocet 5/325 Mg Tab) 1 tab PO Q4 PRN PRN Reason: Pain, moderate (4-7) Stop: 12/14/16 07:50 Last Admin: 12/13/16 06:13 Dose: 1 tab Phenol/Menthol (Phenaseptic 1.4% Throat [place]) 1 spry MT Q2 PRN PRN Reason: Sore Throat Last Admin: 12/08/16 17:10 Dose: 1 spr - Labs Labs: 12/13/16 06:20 12/13/16 06:20 - Constitutional Appears: No Acute Distress - Head Exam Head Exam: ATRAUMATIC, NORMAL INSPECTION, NORMOCEPHALIC - Eye Exam Eye Exam: EOMI, Normal appearance, PERRL Pupil Exam: NORMAL ACCOMODATION, PERRL - ENT Exam ENT Exam: Mucous Membranes Moist, Normal Exam - Neck Exam Neck Exam: Full ROM, Normal Inspection. absent: Lymphadenopathy - Respiratory Exam Respiratory Exam: Clear to Ausculation Bilateral, NORMAL BREATHING PATTERN - Cardiovascular Exam Cardiovascular Exam: REGULAR RHYTHM, +S1, +S2. absent: Murmur - GI/Abdominal Exam GI & Abdominal Exam: Soft, Tenderness, Normal Bowel Sounds. absent: Distended, Firm, Guarding, Rigid, Hernia, Mass, Organomegaly, Pulsatile Mass, Rebound Additional comments: Incision C/D/I. Dermabond.No signs of infection. - Extremities Exam Extremities Exam: Full ROM, Normal Capillary Refill, Normal Inspection. absent : Joint Swelling, Pedal Edema - Back Exam Back Exam: NORMAL INSPECTION - Neurological Exam Neurological Exam: Alert, Awake, CN II-XII Intact, Normal Gait, Oriented x3 - Psychiatric Exam Psychiatric exam: Normal Affect, Normal Mood - Skin Skin Exam: Dry, Intact, Normal Color, Warm Assessment and Plan - Assessment and Plan (Free Text) Assessment: 40 yo F w/ endometriosis s/p Laparotomy with resection of pelvic mass, POD #5 Afebrile, VSS urine cultures: negative blood Cultures [id number] Plan: -start FLD,, ADAT -analgesia -c/w current medical management -encourage OOB, ambulation, and IS use -Possible DC today or tomorrow D/w Dr. Hsu
[2016-12-13] MEDS: DESOGESTREL ETHINYL ESTRADIOL PO SCH (08:17)
[2016-12-13 11:42] LABS: BANDS 2 % (0-2); BASOPHIL 1 % (0-2); EOSINOPHIL 10 % (0-7); LYMPHOCYTE 7 % (20-50); MONOCYTE 2 % (0-10); NEUTROPHIL 78 % (42-75); PLATELET ESTIMATE NORMAL (NORMAL); TOTAL CELLS COUNTED 100
[2016-12-13 11:44] LABS: HYPOCHROMIC SLIGHT
[2016-12-14] MEDS: Oxycodone/Acetaminophen 5/325 mg Tab PO PRN (04:45)
[2016-12-14 07:47] VITALS: BP 155/80; PULSE 99; RESP 20; TEMP 97.7; O2SAT 97
[2016-12-14] MEDS: DESOGESTREL ETHINYL ESTRADIOL PO SCH (08:29)
[2016-12-14] MEDS ORDERED: Oxycodone/Acetaminophen 5/325 mg Tab PO PRN (09:28)
--- NOTE | 2016-12-14 11:49 | CP.PCM.DIS ---
Provider - Provider Date of Admission: 12/07/16 09:42 Attending physician: Bruce Hsu MD Time Spent in preparation of Discharge (in minutes): 45 Hospital Course - Lab Results Lab Results: Micro Results 12/13/16 08:10 Naris MRSA Culture (Admit) - Final MRSA NOT DETECTED 12/10/16 20:15 Blood-Venous Blood Culture - Preliminary NO GROWTH AFTER 3 DAYS 12/10/16 20:00 Blood-Venous Blood Culture - Preliminary NO GROWTH AFTER 3 DAYS 12/11/16 09:45 Urine,Weiss Urine Culture - Final No Growth (<1,000 CFU/ML) 12/08/16 14:30 Naris MRSA Culture (Admit) - Final MRSA NOT DETECTED Most Recent Lab Values WBC 10.4 K/uL (4.8-10.8) 12/13/16 06:20 RBC 3.34 Mil/uL (3.80-5.20) L 12/13/16 06:20 Hgb 10.0 g/dL (12.0-16.0) L 12/13/16 06:20 Hct 29.6 % (34.0-47.0) L 12/13/16 06:20 MCV 88.6 fl (81.0-99.0) 12/13/16 06:20 MCH 29.8 pg (27.0-31.0) 12/13/16 06:20 MCHC 33.7 g/dL (33.0-37.0) 12/13/16 06:20 RDW 13.0 % (11.5-14.5) 12/13/16 06:20 Plt Count 228 K/uL (130-400) 12/13/16 06:20 MPV 8.3 fl (7.2-11.7) 12/13/16 06:20 Neut % (Auto) 77.7 % (50.0-75.0) H 12/13/16 06:20 Lymph % (Auto) 7.9 % (20.0-40.0) L 12/13/16 06:20 Lucas % (Auto) 6.6 % (0.0-10.0) 12/13/16 06:20 Eos % (Auto) 7.5 % (0.0-4.0) H 12/13/16 06:20 Baso % (Auto) 0.3 % (0.0-2.0) 12/13/16 06:20 Neut # 8.1 K/uL (1.8-7.0) H 12/13/16 06:20 Lymph # 0.8 K/uL (1.0-4.3) L 12/13/16 06:20 Lucas # 0.7 K/uL (0.0-0.8) 12/13/16 06:20 Eos # 0.8 K/uL (0.0-0.7) H 12/13/16 06:20 Baso # 0.0 K/uL (0.0-0.2) 12/13/16 06:20 Neutrophils % (Manual) 78 % (42-75) H 12/13/16 06:20 Band Neutrophils % 2 % (0-2) 12/13/16 06:20 Lymphocytes % (Manual) 7 % (20-50) L 12/13/16 06:20 Monocytes % (Manual) 2 % (0-10) 12/13/16 06:20 Eosinophils % (Manual) 10 % (0-7) H 12/13/16 06:20 Basophils % (Manual) 1 % (0-2) 12/13/16 06:20 Platelet Estimate Normal (NORMAL) 12/13/16 06:20 Hypochromasia (manual) Slight 12/13/16 06:20 pCO2 43 mm/Hg (35-45) 12/08/16 11:43 pO2 82 mm/Hg (80-100) 12/08/16 11:43 HCO3 22.8 mmol/L (21-28) 12/08/16 11:43 ABG pH 7.34 (7.35-7.45) L 12/08/16 11:43 ABG Total CO2 24.5 mmol/L (22-28) 12/08/16 11:43 ABG O2 Saturation 97.5 % (95-98) 12/08/16 11:43 ABG O2 Content 16.8 ML/dL (15-23) 12/08/16 11:43 ABG Base Excess -2.6 mmol/L (-2.0-3.0) L 12/08/16 11:43 ABG Hemoglobin 12.6 g/dL (11.7-17.4) 12/08/16 11:43 ABG Carboxyhemoglobin 1.7 % (0.5-1.5) H 12/08/16 11:43 POC ABG HHb (Measured) 2.4 % (0.0-5.0) 12/08/16 11:43 ABG Methemoglobin 1.6 % (0.0-3.0) 12/08/16 11:43 ABG O2 Capacity 17.2 mL/dL (16-24) 12/08/16 11:43 Rosendo Test Yes 12/08/16 11:43 A-a O2 Difference 64.0 mm/Hg 12/08/16 11:43 Hgb O2 Saturation 94.3 % (95.0-98.0) L 12/08/16 11:43 Liter Flow 2 12/08/16 11:43 Vent Mode Nc 12/08/16 11:43 FiO2 28.0 % 12/08/16 11:43 Sodium 140 mmol/l (132-148) 12/13/16 06:20 Potassium 3.6 MMOL/L (3.6-5.0) 12/13/16 06:20 Chloride 105 mmol/L (98-107) 12/13/16 06:20 Carbon Dioxide 30 mmol/L (22-30) 12/13/16 06:20 Anion Gap 9 (10-20) L 12/13/16 06:20 BUN 5 mg/dl (7-17) L 12/13/16 06:20 Creatinine 0.6 mg/dL (0.7-1.2) L 12/13/16 06:20 Est GFR ( Amer) > 60 12/13/16 06:20 Est GFR (Non-Af Amer) > 60 12/13/16 06:20 Random Glucose 107 mg/dL (65-105) H 12/13/16 06:20 Lactic Acid 0.7 MMOL/L (0.7-2.1) 12/09/16 17:00 Calcium 8.6 mg/dL (8.4-10.2) 12/13/16 06:20 Phosphorus 2.7 mg/dl (2.5-4.5) 12/09/16 17:00 Magnesium 1.9 MG/DL (1.6-2.3) 12/10/16 05:30 Total Bilirubin 0.4 mg/dl (0.2-1.3) 12/12/16 07:02 AST 26 U/L (14-36) 12/12/16 07:02 ALT 39 U/L (9-52) 12/12/16 07:02 Alkaline Phosphatase 43 U/L (38-126) 12/12/16 07:02 Total Protein 4.9 G/DL (6.3-8.2) L 12/12/16 07:02 Albumin 2.7 g/dL (3.5-5.0) L 12/12/16 07:02 Globulin 2.2 gm/dL (2.2-3.9) 12/12/16 07:02 Albumin/Globulin Ratio 1.2 (1.0-2.1) 12/12/16 07:02 Blood Type A POSITIVE 12/08/16 05:50 Blood Type Confirm A POSITIVE 12/08/16 07:09 Antibody Screen Negative 12/08/16 05:50 Crossmatch See Detail 12/08/16 05:50 BBK History Checked No verified bt 12/08/16 05:50 - Hospital Course Hospital Course: 36 y F with PMH of endometriosis and PSH of endometriosis resection x2, and appendectomy presents with worsening abdominal and pelvic pains x 1 day. Pt states that for the past year she has had worsening intermittent abdominal pains but last night around midnight the pain became severe. She describes it as a sharp pain located in the suprapubic and b/l lower abdominal region, non- radiating, worsened when she urinates. Pt also admits to intermittent constipation. She denies any N/V, F/C, SOB/Cp, Diarrhea, Dysuria, Hematuria. FDLMP was 6/25 and she is irregular. Pt underwent surgery for resection of pelvic mass, oophrectomy. Pt tolerated it well. By POD 6 pt tolerated regular diet, Ambulated, voided and had regular BM. Pain was controlled with PO med. Pt was cleared to go home. Path came back benign serous cystadenoma. PMH: Endometriosis PSH: Open Endometriosis resections x2 with Appendectomy, last surgery was 5 years ago Discharge Exam - Head Exam Head Exam: ATRAUMATIC, NORMAL INSPECTION, NORMOCEPHALIC - Eye Exam Eye Exam: EOMI, Normal appearance, PERRL Pupil Exam: NORMAL ACCOMODATION, PERRL - Respiratory Exam Respiratory Exam: NORMAL BREATHING PATTERN, UNREMARKABLE - Cardiovascular Exam Cardiovascular Exam: REGULAR RHYTHM - GI/Abdominal Exam GI & Abdominal Exam: Soft, Tenderness. absent: Distended, Firm, Guarding, Hernia, Organomegaly, Pulsatile Mass, Rebound, Rigid Additional comments: Incision C/D/I - Extremities Exam Extremities exam: full ROM, normal inspection - Neurological Exam Neurological exam: Alert, CN II-XII Intact, Normal Gait, Oriented x3, Reflexes Normal - Psychiatric Exam Psychiatric exam: Normal Affect, Normal Mood - Skin Skin Exam: Dry, Intact, Normal Color, Warm Discharge Plan - Discharge Medications Prescriptions: oxyCODONE/Acetaminophen [Percocet 5/325 mg Tab] 2 tab PO Q6 PRN #25 tab PRN Reason: Pain, Moderate (4-7) - Follow Up Plan Condition: FAIR Disposition: DISCHARGE TO PSYCH HOSPITAL Instructions: Endometriosis (DC) Additional Instructions: Follow-up with Dr Hsu in 2 weeks; pls call for appointment
--- NOTE | 2016-12-25 08:15 | PCM.OP ---
Operative Report - Operative Report Date of Surgery/Procedure: 12/08/16 Time of Surgery/Procedure: 11:00 Surgeon: Juve Nevarez MD Hay Buckler: Bruce Skinner MD , Letty Polanco Anesthesia/Sedation: GET. ' Pre-Operative Diagnosis: Intermittent bowel obstruction , abdominal Pain, Abdominal Mass, Ovarian Mass. Post-Operative Diagnosis: Retroperitoneal Mass , Pelvic Endometriosis, Ovarian Endometrioma, Uterine Adenomyoma. Indication for Surgery: I was called in by Dr. Barahona in consultation to evaluate a large abdominal pelvic mass . [facility] and intermittent bowel obstruction. On emergency laparotomy massive endometriosis was identified extending from the pelvis to the upper abdomen. A large ovarian mass on the left side was identified . I performed the oophorectomy and excision of adenomyosis from the posterior aspect of the uterus. Operative Findings: Stage 4 endometriosis with massive ovarian cysts and retroperitonela invasion, Bowel invesion with deep infiltrating sigmoid implants. Left ovarian mass with evidence of endometrioma and cystoadenoma, abnormal fallopian tube with hydrosalpinx, uterus with massive adenomyotic changes. Procedure/Operation Description: PROCEDURE PERFORMED : LEFT SALPINGO OOPHORECTOMY , ADENOMYTOMECTOMY. ADDITIONAL PROCEDURES PERFORMED BY DR BRADY FROM GENERAL SURGERY TO BE DICTATED SEPARATELY. I was called in the procedure by general surgery, a laparotomy had been performed and extensive daissection had been going on to elevate a massive retropertoneal mass that was involving the large and small bowel and the ureters and the bladder. I identified immediately part of the mass being the left ovary . It was completely disstorted by the presence of invasive endometriosis and a cystoadenoma. No viable ovarian tissue was present. Furthermore the left ovary was fully encased with the posterior aspect of the uterus with invasive adenomyyosis. The first part of the procedure involved identifying the left infuldibulo pelvic lifament. Dr. Brady had performed a full left ureterolysis so the ureter was visible and safe. The left infundubulo pelvic ligament was ligated and cut. at this point a careful dissection was perfomed in the cul de sac and the postrerior part of the uterus and the mass was elevated. The uteo ovarian ligament was then identified and cut. The ovary was then freed amd it was approximatively 700 g in weight and was sent to pathology. The posterior part of the uterus contained a large adenomyoma this was progressively excised with great difficulty due to proximity to the uteine arteries on the left side. Once the adenomyma was excised. The uterine serosa was repaired in layers utilizing 2 '0 vycryl suture. At this point hemostasis was excellent , Dr. Jun ramírez took over the operation and proceded with the excision of very extensive rectal endometriosis implants. Estimated Blood Loss: 800 cc Blood Replaced: 2 prbc Sponge/Instrument Count: correct x2 Drains: none Complications: none Specimen: ovarian mass , endometriosis/adenomyosis nodules Discharge & Condition: the patient was woken up in good conditiom and was transfered to the recovery room
== END 2016-12-14 13:46 | disposition home or self-care (01) | DRG 742 ==
LOC: H.ER 09:01 → H.ERHOLD 09:42 → H.PEDS 13:00 → H.ICU/CCU 12-08 13:37 → H.MEDSURG1 12-12 18:19
PROVIDERS: ADMIT Surgery; ATTEND Surgery
PROC: 0UT60ZZ Resection of Left Fallopian Tube, Open Approach (ICD-10-PCS; 2016-12-08)
PROC: 0UT10ZZ Resection of Left Ovary, Open Approach (ICD-10-PCS; 2016-12-08)
PROC: 0TN70ZZ Release Left Ureter, Open Approach (ICD-10-PCS; 2016-12-08)
PROC: 0DBP0ZZ Excision of Rectum, Open Approach (ICD-10-PCS; 2016-12-08)
PROC: 0UB90ZZ Excision of Uterus, Open Approach (ICD-10-PCS; principal; 2016-12-08 07:45)
DX: N80.0 Endometriosis of uterus (principal); D62 Acute posthemorrhagic anemia; K56.69 Other intestinal obstruction; E87.2 Acidosis; E87.8 Other disorders of electrolyte and fluid balance, not elsewhere classified; N70.11 Chronic salpingitis; D27.1 Benign neoplasm of left ovary; N80.3 Endometriosis of pelvic peritoneum; N80.5 Endometriosis of intestine; N80.1 Endometriosis of ovary; E87.6 Hypokalemia; I95.81 Postprocedural hypotension; N93.9 Abnormal uterine and vaginal bleeding, unspecified; K59.00 Constipation, unspecified

== ENCOUNTER 2016-12-21 19:39 | Observation (INO) | payer BC ==
[2016-12-21 19:39] VITALS: BMI 23.3
[2016-12-21] MEDS ORDERED: Iohexol 240 (50 ml) PO ONE (20:27)
[2016-12-21] MEDS ORDERED: Sodium Chloride 0.9% 1,000 ML IV STA (20:29)
--- NOTE | 2016-12-21 20:34 | ED PDOC ---
HPI: Abdomen Time Seen by Provider: 12/21/16 20:00 Chief Complaint (Nursing): Abdominal Pain Chief Complaint (Provider): Abdominal pain History Per: Patient History/Exam Limitations: no limitations Onset/Duration Of Symptoms: Days Outside of [place] travel?: No Current Symptoms Are (Timing): Still Present Additional History Per: Patient Additional Complaint(s): The patient is a 36yo female, PMHx of endometriosis, oopherextomy, appendectomy , resection of abdominal mass, is sent to the ED by Dr. Hsu for evaluation of pain for the past 3 days s/p exploratory laparotomy for a pelvic mass performed 13 days ago. The patient denies any fever, chills and nausea, vomiting , diarrhea; reports her last bowel movement was at 2AM. Patient reports her mass was tested and came back as a benign serous cyst adenoma. Patient currently offers no additional medical complaints. Past Medical History Reviewed: Historical Data, Nursing Documentation, Vital Signs Vital Signs: Last Vital Signs Temp 98.1 F 12/22/16 07:43 Pulse 70 12/22/16 07:43 Resp 18 12/22/16 07:43 BP 94/52 L 12/22/16 07:43 Pulse Ox 97 12/22/16 07:43 - Medical History PMH: Denies: Chronic Kidney Disease - Surgical History Surgical History: Appendectomy - Family History Family History: States: Unknown Family Hx - Home Medications Home Medications: Ambulatory Orders Medication Instructions Recorded Desogestrel-Ethinyl Estradiol 1 tab PO DAILY 12/12/16 [Juleber 28 Day Tablet] oxyCODONE/Acetaminophen [Percocet 2 tab PO Q6 PRN #25 tab 12/14/16 5/325 mg Tab] - Allergies Allergies/Adverse Reactions: Allergies Allergy/AdvReac Type Severity Reaction Status Date / Time corn Allergy Severe ANAPHYLAXIS Verified 12/07/16 14:04 rice Allergy Severe ANAPHYLAXIS Verified 12/07/16 14:17 wheat Allergy Severe ANAPHYLAXIS Verified 12/07/16 14:15 Review of Systems ROS Statement: Except As Marked, All Systems Reviewed And Found Negative Constitutional: Negative for: Fever, Chills Gastrointestinal: Positive for: Abdominal Pain (near incision site). Negative for: Nausea, Vomiting, Diarrhea Physical Exam - Reviewed Nursing Documentation Reviewed: Yes Vital Signs Reviewed: Yes - Physical Exam Appears: Positive for: Well, Non-toxic, No Acute Distress Head Exam: Positive for: ATRAUMATIC, NORMAL INSPECTION, NORMOCEPHALIC Skin: Positive for: Normal Color, Warm, DRY Eye Exam: Positive for: Normal appearance Neck: Positive for: Normal, Supple Cardiovascular/Chest: Positive for: Regular Rate, Rhythm Respiratory: Positive for: Normal Breath Sounds. Negative for: Respiratory Distress Gastrointestinal/Abdominal: Positive for: Soft, Other (vertical incision, appears clean, dry, and intact. No dehissence noted.) Extremity: Positive for: Normal ROM Neurologic/Psych: Positive for: Alert, Oriented - Laboratory Results Result Diagrams: 12/22/16 05:30 12/22/16 05:30 - ECG O2 Sat by Pulse Oximetry: 99 (RA) Pulse Ox Interpretation: Normal Medical Decision Making Medical Decision Making: Time: 2029 Impression: wound dehisense vs. intraabdominal post op infection Plan: -- Labs -- CT AP w/ contrast -- IV Fluids Reassess Scribe Attestation: Documented by Marta Francis acting as a scribe for Dirk Teixeira MD. Provider Attestation: All medical record entries made by the Scribe were at my direction and personally dictated by me. I have reviewed the chart and agree that the record accurately reflects my personal performance of the history, physical exam, medical decision making, and the department course for this patient. I have also personally directed, reviewed, and agree with the discharge instructions and disposition. Re-assess 0000 Cat Scan Report: EXAM: CT Abdomen and Pelvis With Intravenous Contrast CLINICAL HISTORY: 36 years old, female; Pain; Abdominal pain; Generalized; Prior surgery; Surgery date: 6+ months; Surgery type: Appendectomy. Oopherextomy. Abdominal mass resection TECHNIQUE: Axial computed tomography images of the abdomen and pelvis with intravenous contrast. This CT exam was performed using one or more of the following dose reduction techniques : automated exposure control, adjustment of the mA and/or kV according to patient size, and/ or use of iterative reconstruction technique. Coronal and sagittal reformatted images were created and reviewed. CONTRAST: 90 mL of [id number] administered intravenously. EXAM DATE/TIME: 12/21/2016 8:28 PM COMPARISON: CT - ABD PELVIS PO IV CONTRAST 12/07/2016 12:51:04 PM FINDINGS: Trace prominence of the intrahepatic biliary ducts. The spleen is normal. The pancreas is normal. No gallstones. No hydronephrosis or perinephric stranding. The colon is distended with stool consistent with constipation. Appendectomy. The previously seen very large complex cystic structure in the pelvis and lower abdomen is no longer present. The patient has reportedly undergone resection since the prior study. There is stranding and air within the umbilicus region presumably post operative. There is a 1 x 2 cm rounded area of low attenuation in the medial right abdominis rectus muscle that may represent hazy fat in a postoperative defect although the early stages of abscess or seroma formation would also be possible. Clinical correlation recommended and followup if indicated. IMPRESSION: Constipation. Status post pelvic cystic mass resection with postoperative changes in the umbilicus region as discussed above. 0000 Consult: Spoke to [employer] Paralegal, PT to be admitted under Dr. Hsu Service and Resident ordered antibiotics. Scribe Attestation: Documented by Lynne Mcdermott, acting as a scribe for Dirk Teixeira MD MD Scribe Attestation: All medical record entries made by the Scribe were at my direction and personally dictated by me. I have reviewed the chart and agree that the record accurately reflects my personal performance of the history, physical exam, medical decision making, and the department course for this patient. I have also personally directed, reviewed, and agree with the discharge instructions and disposition. ED OBSERVATION Date of observation admission: 12/21/16 Time of observation admission: 20:33 - Progress Note Progress Note: 12/21/16 20:30 Patient currently being seen by surgical lead. Disposition - Clinical Impression Clinical Impression: Abdominal discomfort - Patient ED Disposition Is Patient to be Admitted: Yes Counseled Patient/Family Regarding: Studies Performed, Diagnosis - Disposition Disposition Time: 22:00 Condition: GOOD
[2016-12-21] MEDS ORDERED: Iohexol 240 (50 ml) ONE (20:54)
[2016-12-21 20:59] LABS: BASO # 0.1 K/uL (0.0-0.2); BASO % 0.6 % (0.0-2.0); EOS # 0.5 K/uL (0.0-0.7); EOS % 3.1 % (0.0-4.0); HEMOGLOBIN 10.9 g/dL (12.0-16.0); LYMPH # 2.2 K/uL (1.0-4.3); LYMPH % 14.6 % (20.0-40.0); MEAN CELL VOLUME 88.6 fl (81.0-99.0); MEAN CORPUSCULAR HEMOGLOBIN 28.4 pg (27.0-31.0); MEAN PLATELET VOLUME 7.5 fl (7.2-11.7); MONO % 6.4 % (0.0-10.0); NEUT # 11.2 K/uL (1.8-7.0); NEUT % 75.3 % (50.0-75.0); RBC 3.84 Mil/uL (3.80-5.20); RED CELL DISTRIBUTION WIDTH 13.4 % (11.5-14.5); WHITE BLOOD COUNT 14.8 K/uL (4.8-10.8)
[2016-12-21 21:13] LABS: ALB/GLOB RATIO 1.2 (1.0-2.1); ALBUMIN 4.2 g/dL (3.5-5.0); ALT/SGPT 34 U/L (9-52); AST/SGOT 24 U/L (14-36); BLOOD UREA NITROGEN 8 mg/dl (7-17); CALCIUM 9.6 mg/dL (8.4-10.2); GFR AFRICAN-AMERICAN > 60; GFR NON-AFRICAN AMERICAN > 60
[2016-12-21] MEDS ORDERED: Iohexol 300 100 ML IJ ONE (22:21)
[2016-12-21] MEDS ORDERED: Sodium Chloride 0.9% 50 ML IV ONE (22:21)
[2016-12-21] MEDS ORDERED: Oxycodone/Acetaminophen 5/325 mg Tab PO PRN ×2 (23:44→23:53)
--- NOTE | 2016-12-21 23:49 | CP.PCM.HP ---
History of Present Illness - History of Present Illness History of Present Illness: History & Physical. Dr. Hsu CC: Abdominal pain 36yo F with PMHx of Endometriosis here for evaluation of abdominal pain. Patient recently had major abdominal surgery performed by Dr. Hsu and Dr. Nevarez on 12/08. She was discharged from the hospital on 12/14 and was doing well. She noticed some clear, thin, yellow, non-odorous liquid 2 days ago from her midline abdominal incision site. Just prior to arrival to the ER today, she felt a sharp pain at her incision and stated that she "felt a lump" on the right side of her incision. She denies any purulent drainage. She denies any fevers or chills. No N/V/D. Has been having regular bowel movements. Last BM was tonight. Has been eating a regular diet with no complaints. Postop pain has been controlled with percocet as needed. She states that this pain "felt different than the pain she has been experiencing" and wanted to come in for further evaluation. Patient denies any chest pain, no SOB. No Headaches. No urinary changes. PMHx: Endometriosis PSHx: 12/08/16 - Ex lap w/ excision of pelvic mass, left oophrectomy, excision of sigmoid colon wall; Multiple Endometriosis excisions; Appendectomy NKDA Present on Admission - Present on Admission Any Indicators Present on Admission: No Review of Systems - Constitutional Constitutional: absent: Chills, Fever - Cardiovascular Cardiovascular: absent: Chest Pain, Dyspnea - Respiratory Respiratory: absent: Dyspnea - Gastrointestinal Gastrointestinal: Abdominal Pain. absent: Diarrhea, Nausea, Vomiting - Genitourinary Genitourinary: absent: Dysuria Past Patient History - Past Medical History & Family History Past Medical History?: Yes Past Family History: Reviewed and not pertinent - Past Social History Smoking Status: Never Smoked - CARDIAC Hx Cardiac Disorders: No - PULMONARY Hx Respiratory Disorders: No - NEUROLOGICAL Hx Neurological Disorder: No - HEENT Hx HEENT Problems: No - RENAL Hx Chronic Kidney Disease: No - ENDOCRINE/METABOLIC Hx Endocrine Disorders: No - HEMATOLOGICAL/ONCOLOGICAL Hx Blood Disorders: No - INTEGUMENTARY Hx Dermatological Problems: No - MUSCULOSKELETAL/RHEUMATOLOGICAL Hx Musculoskeletal Disorders: No Hx Falls: No - GASTROINTESTINAL Other/Comment: endometriosis - GENITOURINARY/GYNECOLOGICAL Hx Genitourinary Disorders: No - PSYCHIATRIC Hx Substance Use: No - SURGICAL HISTORY Hx Appendectomy: Yes - ANESTHESIA Hx Anesthesia: Yes Meds Allergies/Adverse Reactions: Allergies Allergy/AdvReac Type Severity Reaction Status Date / Time corn Allergy Severe ANAPHYLAXIS Verified 12/07/16 14:04 rice Allergy Severe ANAPHYLAXIS Verified 12/07/16 14:17 wheat Allergy Severe ANAPHYLAXIS Verified 12/07/16 14:15 Physical Exam - Constitutional Appears: Well, No Acute Distress - Head Exam Head Exam: ATRAUMATIC, NORMAL INSPECTION, NORMOCEPHALIC - Eye Exam Eye Exam: EOMI, Normal appearance - ENT Exam ENT Exam: Mucous Membranes Moist - Respiratory Exam Respiratory Exam: NORMAL BREATHING PATTERN - Cardiovascular Exam Cardiovascular Exam: absent: JVD - GI/Abdominal Exam GI & Abdominal Exam: Distended (mild distention), Soft Additional comments: Midline Abdominal incision noted from pubis to approx 6cm above the umbilicus. Skin edges well approximated. No active drainage noted. Surgical glue starting to slough off. Mild mahi-incisional erythema. Mild induration. A small fluctuant area to the right of the umbilicus is apparant on palpation. No gross wound dehiscence noted. Tender to palpation. Mildly distended. No guarding - Extremities Exam Extremities exam: Positive for: normal inspection. Negative for: calf tenderness - Neurological Exam Neurological exam: Alert, Oriented x3 - Psychiatric Exam Psychiatric exam: Normal Affect, Normal Mood Results - Vital Signs Recent Vital Signs: Last Vital Signs Temp 98.6 F 12/21/16 20:14 Pulse 74 12/21/16 20:14 Resp 18 12/21/16 20:14 BP 99/49 L 12/21/16 20:14 Pulse Ox 99 12/21/16 21:55 - Labs Result Diagrams: 12/21/16 20:45 12/21/16 20:45 Labs: Laboratory Results - last 24 hr 12/21/16 12/21/16 20:45 20:45 WBC 14.8 H RBC 3.84 Hgb 10.9 L Hct 34.1 MCV 88.6 MCH 28.4 MCHC 32.0 L RDW 13.4 Plt Count 447 H D MPV 7.5 Neut % (Auto) 75.3 H Lymph % (Auto) 14.6 L [place] % (Auto) 6.4 Eos % (Auto) 3.1 Baso % (Auto) 0.6 Neut # 11.2 H Lymph # 2.2 [place] # 1.0 H Eos # 0.5 Baso # 0.1 Sodium 141 Potassium 4.0 Chloride 101 Carbon Dioxide 25 Anion Gap 19 BUN 8 Creatinine 0.8 Est GFR ( Amer) > 60 Est GFR (Non-Af Amer) > 60 Random Glucose 112 H Calcium 9.6 Total Bilirubin 0.2 AST 24 ALT 34 Alkaline Phosphatase 69 Total Protein 7.7 Albumin 4.2 Globulin 3.5 Albumin/Globulin Ratio 1.2 Assessment & Plan - Assessment and Plan (Free Text) Assessment: 36yo F with PMHx of Endometriosis. s/p Laparotomy w resection of Pelvic mass on 12/08. Here for Mahi-incisional abdominal pain. - Leukocytosis noted. Afebrile. VSS - Thrombocytosis - CT Abd Pelvis, reviewed. - f/u official CT report - f/u AM labs - Pain management - IV abx - Regular diet - Encourage OOB/Ambulation Further recs as per Dr. Shadi Rocha PGY1
[2016-12-22] MEDS ORDERED: Piperacillin/Tazobact 3.375 gm Inj IVPB ONE (00:29)
[2016-12-22] MEDS: Piperacillin/Tazobact 3.375 GM in Sodium Chloride 0.9% 100 ML IVPB SCH ×2 (00:41→09:57)
[2016-12-22 07:21] LABS: HEMOGLOBIN 9.8 g/dL (12.0-16.0); MEAN CELL VOLUME 87.5 fl (81.0-99.0); MEAN CORPUSCULAR HEMOGLOBIN 29.2 pg (27.0-31.0); MEAN CORPUSCULAR HGB CONC 33.4 g/dL (33.0-37.0); RBC 3.37 Mil/uL (3.80-5.20); RED CELL DISTRIBUTION WIDTH 13.5 % (11.5-14.5); WHITE BLOOD COUNT 12.7 K/uL (4.8-10.8)
[2016-12-22 07:42] LABS: ALB/GLOB RATIO 1.2 (1.0-2.1); ALBUMIN 3.4 g/dL (3.5-5.0); ALT/SGPT 28 U/L (9-52); AST/SGOT 17 U/L (14-36); BLOOD UREA NITROGEN 7 mg/dl (7-17); CALCIUM 8.9 mg/dL (8.4-10.2); GFR AFRICAN-AMERICAN > 60; GFR NON-AFRICAN AMERICAN > 60
[2016-12-22 07:44] VITALS: BP 94/52; PULSE 70; RESP 18; TEMP 98.1
--- NOTE | 2016-12-22 09:44 | CP.PCM.DIS ---
Provider - Provider Date of Admission: 12/21/16 23:50 Attending physician: Bruce Hsu MD Consults: none Time Spent in preparation of Discharge (in minutes): 30 Hospital Course - Lab Results Lab Results: Most Recent Lab Values WBC 12.7 K/uL (4.8-10.8) H 12/22/16 05:30 RBC 3.37 Mil/uL (3.80-5.20) L 12/22/16 05:30 Hgb 9.8 g/dL (12.0-16.0) L 12/22/16 05:30 Hct 29.5 % (34.0-47.0) L 12/22/16 05:30 MCV 87.5 fl (81.0-99.0) 12/22/16 05:30 MCH 29.2 pg (27.0-31.0) 12/22/16 05:30 MCHC 33.4 g/dL (33.0-37.0) 12/22/16 05:30 RDW 13.5 % (11.5-14.5) 12/22/16 05:30 Plt Count 379 K/uL (130-400) 12/22/16 05:30 MPV 7.5 fl (7.2-11.7) 12/21/16 20:45 Neut % (Auto) 75.3 % (50.0-75.0) H 12/21/16 20:45 Lymph % (Auto) 14.6 % (20.0-40.0) L 12/21/16 20:45 Florence % (Auto) 6.4 % (0.0-10.0) 12/21/16 20:45 Eos % (Auto) 3.1 % (0.0-4.0) 12/21/16 20:45 Baso % (Auto) 0.6 % (0.0-2.0) 12/21/16 20:45 Neut # 11.2 K/uL (1.8-7.0) H 12/21/16 20:45 Lymph # 2.2 K/uL (1.0-4.3) 12/21/16 20:45 Florence # 1.0 K/uL (0.0-0.8) H 12/21/16 20:45 Eos # 0.5 K/uL (0.0-0.7) 12/21/16 20:45 Baso # 0.1 K/uL (0.0-0.2) 12/21/16 20:45 Sodium 139 mmol/l (132-148) 12/22/16 05:30 Potassium 4.2 MMOL/L (3.6-5.0) 12/22/16 05:30 Chloride 105 mmol/L (98-107) 12/22/16 05:30 Carbon Dioxide 25 mmol/L (22-30) 12/22/16 05:30 Anion Gap 14 (10-20) 12/22/16 05:30 BUN 7 mg/dl (7-17) 12/22/16 05:30 Creatinine 0.8 mg/dL (0.7-1.2) 12/22/16 05:30 Est GFR ( Amer) > 60 12/22/16 05:30 Est GFR (Non-Af Amer) > 60 12/22/16 05:30 Random Glucose 88 mg/dL (65-105) 12/22/16 05:30 Calcium 8.9 mg/dL (8.4-10.2) 12/22/16 05:30 Total Bilirubin 0.3 mg/dl (0.2-1.3) 12/22/16 05:30 AST 17 U/L (14-36) 12/22/16 05:30 ALT 28 U/L (9-52) 12/22/16 05:30 Alkaline Phosphatase 62 U/L (38-126) 12/22/16 05:30 Total Protein 6.3 G/DL (6.3-8.2) 12/22/16 05:30 Albumin 3.4 g/dL (3.5-5.0) L 12/22/16 05:30 Globulin 2.9 gm/dL (2.2-3.9) 12/22/16 05:30 Albumin/Globulin Ratio 1.2 (1.0-2.1) 12/22/16 05:30 - Hospital Course Hospital Course: 36yo F with PMHx of Endometriosis came to [facility] ED on 12/21/16 for evaluation of abdominal pain. Patient recently had surgery performed by Dr. Hsu and Dr. Nevarez on 12/08. She had an exploratory laparotomy w/ excision of retroperitoneal mass, left oophrectomy, excision of sigmoid colon wall; Multiple Endometriosis excisions. She was discharged from the hospital on 12/14 and was doing well. She noticed some clear, thin, yellow, non-odorous liquid 2 days prior to arrival from her midline abdominal incision site. No N/V/D. Has been having regular bowel movements. She has been eating a regular diet with no complaints. She was found to have leukocytosis which decreased this morning. She was given Zosyn. CT Abd/Pelvis with PO and IV contrast showed post operative changes in the umbilical region, possible early abscess or seroma. The next day, 12/22/16, she was doing well and was discharged home with a prescription for Augmentin to follow up with Dr. Hsu in his office. Discharge Exam - Head Exam Head Exam: ATRAUMATIC, NORMAL INSPECTION, NORMOCEPHALIC - Eye Exam Eye Exam: EOMI, Normal appearance - Respiratory Exam Respiratory Exam: NORMAL BREATHING PATTERN. absent: Respiratory Distress - Cardiovascular Exam Cardiovascular Exam: +S1, +S2 - GI/Abdominal Exam GI & Abdominal Exam: Soft. absent: Distended, Firm, Guarding, Tenderness Additional comments: Small amount drainage from middle of midline incision, sutures in place, mild erythema around incision - Neurological Exam Neurological exam: Alert, CN II-XII Intact, Oriented x3 - Psychiatric Exam Psychiatric exam: Normal Affect, Normal Mood - Skin Skin Exam: Dry, Warm Discharge Plan - Follow Up Plan Condition: GOOD Disposition: HOME/ ROUTINE Instructions: Amoxicillin/Clavulanate Potassium (By mouth), Endometriosis (DC) , Acute Abdominal Pain (DC) Additional Instructions: Follow up with Dr. Hsu in his office in 1 week. Call to make appointment. If your symptoms worsen or you develop fever, return to the ED. Take full course of antibiotics (Augmentin) even if your symptoms resolve. May take Tylenol with Codeine or OTC pain medicine as needed for pain Avoid heavy lifting for 2 more weeks Referrals: Bruce Hsu MD [Medical Doctor] -
--- NOTE | 2016-12-22 12:01 | CT ---
PROCEDURE: CT abdomen pelvis dated 12/21/2016 HISTORY: Abdominal pain. Additional history includes appendectomy ; oophorectomy and abdominal mass resection COMPARISON: Comparison made with CT scan abdomen pelvis 12/07/2016 TECHNIQUE: Contiguous axial images of the abdomen and pelvis performed in standard fashion following oral and intravenous injection of approximately 90 cc Omnipaque 300 contrast material. . Radiation dose: Total exam DLP = 620.77 mGy-cm. This CT exam was performed using one or more of the following dose reduction techniques: Automated exposure control, adjustment of the mA and/or kV according to patient size, and/or use of iterative reconstruction technique. FINDINGS: LOWER THORAX: Lung bases are clear without infiltrate effusion or basilar pneumothorax. Heart size is borderline/ mildly enlarged. No significant pericardial effusion. LIVER: Liver is enlarged measuring nearly 20 cm in CC dimension. No obvious hepatic mass or collection. Minimal central periportal edema. Portal and splenic veins are opacified. GALLBLADDER AND BILE DUCTS: Gallbladder is physiologically distended. No evidence of intraluminal gallbladder calculi. PANCREAS: The pancreas appears unremarkable without obvious mass collection or significant ductal dilatation SPLEEN: Spleen exhibits normal size and attenuation pattern. ADRENALS: No adrenal lesions. KIDNEYS AND URETERS: Kidneys demonstrate symmetric nephrograms. . There is a small nonobstructing calculus lower pole right kidney measuring approximately 1.6 mm. . BLADDER: Urinary bladder is incompletely distended which may account for slight thick-walled appearance. Possibility of a cystitis not excluded. REPRODUCTIVE: Questionable uterine fibroid left aspect of the fundus. Pelvic ultrasound followup could be performed for further evaluation. Previously noted large septated pelvic mass is no longer visible and presumably has been resected at consistent with this patient's history of same. Some minor stranding seen in the umbilical region likely postoperative in nature. APPENDIX: Appendix not seen with any certainty on this study consistent with this patient's history of hysterectomy. BOWEL: Evaluation of the bowel is limited due to incomplete opacification. The stomach is incompletely distended which presumably accounts for thick-walled appearance. Visualized loops of small bowel exhibit normal contour and caliber. No evidence acute mechanical small bowel obstruction with oral contrast material extending into the cecum to the level of the hepatic flexure. Large amount of stool is present within the colon consistent with constipation. PERITONEUM: No evidence of free intraperitoneal air or fluid. There is a small approximately 17 mm x 8.5 mm elliptical shaped low-attenuation focus in the left parasagittal lower abdominus rectus muscle which could represent a small amount of postoperative fluid -seroma however abscess not excluded. Clinical correlation recommended. LYMPH NODES: No significant/bulky adenopathy VASCULATURE: No evidence of abdominal aortic or iliac artery aneurysm. BONES: No fracture or destructive lesion. OTHER FINDINGS: None. IMPRESSION: Status post resection of a large pelvic and lower abdominal cystic mass lesion with metallic clips seen in the right aspect of the pelvis. . There appears to be small elliptical shaped low-attenuation focus within the lower left parasagittal abdominus rectus muscle which could represent postoperative fluid/seroma however small round abscess collection cannot be excluded. Questionable small uterine fibroid . Consider followup pelvic ultrasound Tiny 1.6 mm nonobstructing calculus lower pole left kidney. Urinary bladder is incompletely distended which may account for slight thick-walled appearance. Cystitis not excluded. . Hepatomegaly with minor intra central intrahepatic biliary ductal dilatation. Findings consistent with constipation.
[2016-12-25 15:21] VITALS: O2SAT 99
--- NOTE | 2016-12-31 11:10 | PCM.ANESB7 ---
Adductor Canal Block - Adductor Canal Block Procedure Performed: Adductor Canal Block Left - Procedure Adductor Canal Block: The note is in error
--- NOTE | 2016-12-31 11:14 | PCM.OP ---
Operative Report - Operative Report Date of Surgery/Procedure: 12/07/16 Time of Surgery/Procedure: 13:00 Surgeon: Dr. Bruce Hsu Rubber Off: Dr. Juve Nevarez Anesthesia/Sedation: Dr. Mary Lou Cummins/General Pre-Operative Diagnosis: Abdominal pain, Small orion obstruction large multiple masses consistent with recurrent endometriosis in the pelvis and retroperitoneum Post-Operative Diagnosis: same Indication for Surgery: small bowel obstruction from recurrent endometriosis involving the pelvis and retroperitoneum Operative Findings: Multiple large cysts consistent with recurrent endometriosis in the pelvis and retroperitoneum causing small bowel obstruction Procedure/Operation Description: 1-Extensive excision retroperitoneal mass (> 10.0 cm). 2-Urniary bladder resction (complex). 3-Colectomy sigmoid. 4- Takedown splenic flexure. 5-Right and left ileoinguinal lymphadenectomies. 6- Right and left uretereolysis. 7-Urinary bladder cystorrhaphy. Brief History: This is a 36 yo woman admitted through the emergency department with abdominal pain who on CT scan was found to have recurrent endometriosis causing small bowel obstruction. The lesions are multiple and involve the pelvis floor, retroperitoneum, large bowel and impinge the ureeters bilaterally as well as the iliac vessels. Description of the procedure: The patient was brought to the operting room and after induction of endotracheal anesthesia she ws prepped and drapped in the usual sterile manner. A generous midline incision was made into the skin and subcutaneous tisse with a 10 blade. Electrocautery was used to enter the midline fascia. Multiple adhesions from her previous surgery were encounted and lysed using blunt and sharp dissection with the aid of electrocautery. Mulitple masses which were cohesed togehter were encounted and involved the pelvic floor, retroperitoneum and bilaterally invovled the ureters and iliac vessles. The masses were dissected from the right colon with presevation of the integrity of this structure. Laterally on the left side the mass was intimately attached to the retroperitoneal space the the left ureter was identified above the tumor. It was followed distally and the fibrotic attachments to the ureter were lysed. The left ureter was isolated and preserved during the remainderof the dissection. Similarly, the left iliac fossa was attached and the left iliac vessels were dissected in a similar fashion along with the lymph bearing tissue which was dissected free and from the iliac vessels. The lymph nodes were left on the future specimen. The tumor as dissected inferiorly using blunt and sharp dissection with the aid of electrocautery. The mass was immobile at this point on the left side and in a similar fashion the right ureter and iliac vessels were isolated with the remnant lymph nodes left on the future specimen side of the mass. The sigmoid colon was initmately attached to the mass and it was mobilized from the rectum superiorly, to the left peritoneal attachments. The splenic flexure was mobilized in a similar fashio in order to allow for adeqaute mobilization of the sigmoid colon. With the mass now mobilized laterally on both sides our attention turned to the urinary bladder where the lesion was attached by dense fibrous tissue. The urinary bladder was incised in order to remove the mass en- bloc. Two areas of urinary bladder were excsed with the mass and this was performed with blunt and sharp dissection with the aid of electrocautery. Once this was released the remaining portion of the mass was intimately attached to the retroperitoneal pelvic space just below the aortic bifurcation and deep to the sacrum. With blunt dissection this portion of the retroperitoneal tumor was released. With the mass now in the wound the final attachment involved the sigmoid colon. The colon was incised with eelctrocautery and the mass was removed en-bloc. The mass was appropriately marked and sent to pathology as a separate specimen. With the major largest tumor now removed our attention turned to the multiple other smaller masses in the plevis. Using similar techniques other urinary bladder masses were excised, appropriately marked and sent to patholgy as a sseparate specimen. Dr. Nevarez then took over the proecedure (separate dictation Dr. Nevarez). When he completed his portion of the operation our attention then turned to evalauting hemostasis whihc was deemed adeqaute at this time. The sigmoid colon was then anastomosed with 3-0 vicrly for the mucosa in a continuous layer and multiple interrupted 3-0 vicryl for the serosa. The uriniary bladder had multiple openings from the resction of the masses and the urinary bladder was repaired in two layers with 3-0 vicryl. At this point all counts were correct and hemostasis was deemed adeqaute. The midline fascia was closed with 1-0 PDS and the skin was closed with continuous 4 -0 monocryl. A clean dressing was applied. The patient was awakened, extubated and brought to the recovery room in stable condition. Estimated Blood Loss: 1000 cc Blood Replaced: 3000 cc crystalloids, 2 U packed red blood cells, and 250 cc 5% albumin Sponge/Instrument Count: correct Drains: none Complications: none Specimen: 1-Retroperitoneal tumor. 2-bladder mass #1. 3-bladder mass #2. 4- bladder mass #3. 5-bladder mass #4. 6-bladder mass #5. 7-sigmoid mass. 8- Sigmoid colon. 9-left periureteral mass. 10-nodule. 11-posterior cervical mass. 12-ant cervical mass. 13-left periureteral mass. 14-nodule #2 Discharge & Condition: stable
== END 2016-12-22 11:51 | disposition home or self-care (01) ==
LOC: H.ER 19:39 → H.EROBSV 20:29 → H.ERHOLD 23:50 → OBSVTOIN 23:50 → INTOOBSV 23:50 → H.MEDSURG1 12-22 01:55
PROVIDERS: ADMIT Surgery; ATTEND Surgery
DX: R10.9 Unspecified abdominal pain (principal); D72.829 Elevated white blood cell count, unspecified; D47.3 Essential (hemorrhagic) thrombocythemia; Z91.018 Allergy to other foods
CPT/HCPCS: 36415; 74177; 80053; 81025; 85025; 85027; 87040; 87070; 99283; G0378; J2270; J2543; J7040; Q9966; Q9967